=== PATIENT | female | born 1975 | race Caucasian/White ===

== ENCOUNTER → 2022-11-30 12:24 | Outpatient (CLI) | payer OTHER, MEDICAID, SELFPAY ==
--- NOTE | 2022-11-30 12:28 | DI.CT.S_ITS ---
PROCEDURE: CT LUMBAR SPINE WO CON INDICATIONS: Spinal stenosis, lumbar region TECHNIQUE: Noncontrast 3 mm thick sections acquired from the T12 level to the sacrum. Sagittal and coronal reformats were constructed. For radiation dose reduction, the following was used: automated exposure control. COMPARISON: [facility], MR, MR LUMBAR SPINE WITH/WITHOUT CONTRAST, 09/25/2022, 12:46. FINDINGS: Image quality: Excellent. Bones: Postsurgical changes are again seen from laminectomies and posterior fixation at L3 through S1 with bilateral pedicle screws and interbody rods as well as disc spacers. The left S1 pedicle screw is noted to be fractured proximally. Metallic hardware is otherwise intact with unchanged alignment. Osseous alignment is unchanged. No acute vertebral body compression fractures. No suspicious lytic or blastic bony lesions. No pars defects. T12-L1: No significant spinal canal stenosis or neural foraminal narrowing. L1-L2: Circumferential disc bulging is seen with bilateral facet hypertrophy. Findings result in mild narrowing of the spinal canal as well as mild right neural foraminal narrowing, which does not appear significantly changed when compared to the MRI from 09/25/2022. L2-L3: Loss of disc space height with circumferential disc bulging and degenerative endplate changes as well as bilateral facet hypertrophy and buckling of the ligamentum flavum. Findings result in severe narrowing of the spinal canal as well as severe right and moderate left neural foraminal narrowing. L3-L4: Postsurgical changes from prior laminectomy with decompression of the spinal canal. Moderate right and severe left neural foraminal narrowing. L4-L5: Postsurgical changes from laminectomy with decompression of the spinal canal. Moderate right neural foraminal narrowing without significant left neural foraminal narrowing. L5-S1: Postsurgical changes from laminectomy with decompression of the spinal canal. Moderate left neural foraminal narrowing is seen without significant right neural foraminal narrowing. Soft tissues: No retroperitoneal masses or hematomas. Visualized aorta is normal in caliber. IMPRESSION: 1. Postsurgical changes again seen at L3 through S1. The left S1 pedicle screw is noted to be fractured. 2. Multilevel degenerative disc disease and facet hypertrophy as described in detail in the body of the report. Findings are most notable at the L2-3 level with there is severe narrowing of the central spinal canal. Findings do not appear significantly changed when compared to the MRI from 09/25/2022. Approved by: Saman Coy M.D. on 11/30/2022 at 21:25
== END ==
PROVIDERS: Family Provider Nurse Practitioner; PCP Family Medicine; Referring Provider Orthopaedic Surgery Orthopaedic Surgery of the Spine; Visit Provider Orthopaedic Surgery Orthopaedic Surgery of the Spine
DX: M48.062 Spinal stenosis, lumbar region with neurogenic claudication (principal); T84.216A Breakdown (mechanical) of internal fixation device of vertebrae, initial encounter; M51.36 Other intervertebral disc degeneration, lumbar region; M48.061 Spinal stenosis, lumbar region without neurogenic claudication; M47.816 Spondylosis without myelopathy or radiculopathy, lumbar region
CPT/HCPCS: 72131

== ENCOUNTER → 2022-12-15 11:01 | Outpatient (CLI) | payer OTHER, MEDICAID, SELFPAY ==
[2022-12-15 12:34] LABS: BUN Creatinine Ratio 11.6 (6-22); Blood Urea Nitrogen 22 mg/dL (7-17); Calcium 9.1 mg/dL (8.4-10.2); Carbon Dioxide 26 mmol/L (22-32); Chloride 100 mmol/L (98-107); Estimated Glomerular Filt Rate 32 mL/min (>60); Glucose 108 mg/dL (70-100); HEMOLYSIS < 15 (0-50); Potassium 5.2 mmol/L (3.4-5.1); Sodium 134 mmol/L (137-145)
[2022-12-16 09:42] LABS: Parathyroid Hormone Int 179 pg/mL (15-65)
== END ==
PROVIDERS: Family Provider Nurse Practitioner; PCP Family Medicine; Referring Provider Orthopaedic Surgery Orthopaedic Surgery of the Spine; Visit Provider Orthopaedic Surgery Orthopaedic Surgery of the Spine
DX: Z01.818 Encounter for other preprocedural examination (principal); Z01.812 Encounter for preprocedural laboratory examination; R79.89 Other specified abnormal findings of blood chemistry
CPT/HCPCS: 36415; 80048; 83970; 93005; 93010

== ENCOUNTER 2023-01-08 06:11 | Inpatient (IN) | payer OTHER, MEDICAID, SELFPAY ==
[2023-01-01 12:46] VITALS: BMI 48.4
[2023-01-08] VITALS (19 sets, daily range): BP systolic 126–173; BP diastolic 46–96; PULSE 65–83; RESP 13–20; TEMP 36.1–36.9; O2SAT 91–98; BMI 48.2
[2023-01-08] MEDS: LACTATED RINGERS 1,000 ML 42 ML IV (07:14)
--- NOTE | 2023-01-08 07:23 | SUR.OPER ---
Prone on spine table, head in foam head support, padded chest and pelvic supports, gel pad at knees, lower legs supported by pillows; nipples, genitalia and toes free of pressure, arms secured on foam padded arm boards at <90 degrees abduction. Tape over blanket at thigh secured to table.
--- NOTE | 2023-01-08 07:38 | PM.PREOP ---
Pre-operative Note Interval Note History & Physical reviewed/Exam performed by Physician: Yes Changes to H&P: No
[2023-01-08] MEDS: CEFAZOLIN 2 GM/100 ML PREMIX 100 ML IV (08:10)
[2023-01-08] MEDS: BUPIVACAINE 0.25% (PF) 60 ML, EPINEPHrine 0.15 MG INJ (10:51)
[2023-01-08] MEDS: BUPIVACAINE LIPOSOME 266 MG/20 ML VIAL INJ (10:51)
--- NOTE | 2023-01-08 11:24 | P.OP_ITS ---
Operative Date/Time/Diagnoses Date of procedure: 01/08/23 Time of procedure: 11:24 Pre-op diagnosis: 1. L2-3 spinal stenosis with neurogenic claudication 2. History of L3-S1 PSF with instrumentation 3. left S1 pedicle screw breakage Post-op diagnosis: same Procedure & Clinicians Procedure: 1. L2-3 posterolateral and posterior interbody fusion 2. L2-3 posterior interbody cage placement 3. L3-S1 posterior non-segmental instrumentation removal 4. L3-4, L4-5, L5-S1 revision laminectomy with exploration of fusion 5. L2-3, L3-4, L4-5, L5-S1 posterior segmental instrumentation with pedicle screw placement 6. L5-S1 posterolatearl fusion 7. [place] of bone marrow from iliac crest through a separate incision 8. Utilization of microsurgical technique and operating microscope 9. Utilization of robotic assisted navigation Same procedure as scheduled: Yes Indications: Patient has been having chronic back pain and worsening lumbar radiculopathy and symptoms of neurogenic claudication. Patient had previous lumbar fusion surgery several years ago with worsening symptom of radiculopathy and neurogenic claudication over the last 6 months. Recent MRI shows a large extruded disc at L2-3 level causing severe central stenosis and lateral recess stenosis. Patient's recent CT scan for surgical planning also shows a broken left S1 screw assembly. Patient failed multiple conservative management with worsening pain weakness and numbness in her lower extremity. Patient has been having difficulty performing activity of daily living. After discussing risks benefits of treatment options, patient elected proceed with surgery. Surgeon: Micah Peace Certified Adapted Physical Educator: Della Trejo Click Yes if Unassisted: No Anesthesia Type: General Operative Notes Closure Type: primary Specimen(s): none sent Prosthetic devices, grafts, tissues, transplants, or devices: Globus CREO MIS screws, Globus Rise cage, Globus Addition system Applied: catheter Estimated Blood Loss (mL): 100 Blood products transfused: none Procedure in detail: Patient was seen in the preoperative area. Risks and benefits of the surgery was discussed with the patient. Informed consent was obtained from the patient and placed in the chart. Surgical site was marked. Patient was taken to the operative room. General anesthesia was administered. Prophylactic antibiotic was given to the patient less than 30 min before the incision was made. Patient was placed into a prone position on the Domenic table. Patient's back was then prepped and draped in the sterile fashion. Time-out was performed at this time. After patient was prepped and draped, patient's PSIS was palpated and marked bilaterally. Small 1 cm incision was made over the PSIS for placement of the reference probes. Two trocar was placed into the PSIS 1 on each side. The reference probe was attached to the trocar of the reference apparatus. At this time the C-arm imaging was used to confirm AP and lateral of L2, L3, L4, L5, and S1 vertebrae and merged the C-arm imaging using the Epoch robotic navigation system with the CT of the lumbar spine. After successful merging was completed and confirmed, skin marker was used to kashif out the skin incision using the Epoch robotic arm. Bilateral incision was made at this time. Using patient's previous scar incision was made over the L2, L3 L4, L5-S1 interval on the left side. Fascia was incised in line with skin incision. Patient's previously placed hardware over the L3-4, L4-5, L5-S1 level was identified by dissecting down to the level the hardware using a Bovie and a Coelho. The locking caps which was removed using globus screwdriver. The locking grisel was then removed from the tulips of the pedicle screws using a Genevieve. The pedicle screws were then removed using the screwdriver. The left S1 screw was found to have a disarticulated to look from the shaft of the screw. The grisel and the Tulip was no longer engage the shaft. After removing the locking cap the grisel and all the screws including the S1 screw was able to be removed from the pedicles of left L3-L4 L5 and S1 vertebrae. Pre templated trajectory was used and guided using the Epoch robotic navigation system for bilateral L2, L3, L4, L5, S1 pedicle screws placement. This was done by using the robotic arm to guide the high-speed bur to make a cortical entry point. Next a drill was placed also using the robotic arm and guided using the navigation system drilling partially through bilateral L2, L3, L4, L5, S1 pedicles. Next L2, L3, L4, L5, S1 pedicle screws it was pre templated and measured was placed onto the power laborer driver and inserted into the pedicles on the left. After all 5 screws were placed C-arm imaging was taken of both AP and lateral to confirm the placement. Excellent placement of the screws were confirmed and a matched precisely with the pre planned screw placement using the navigation system. Second incision was made on the right side over the L2-4 interval. The hardware was exposed at L3 and L4 level which was found to be intact without any issues. MARs retractor was inserted using [employer] guidence. Globus MARS retractors was placed inside the incision and docked onto the L3, L4, L5 lamina. Using microsurgical technique and operating microscope, a L2 laminectomy and L2-3 facetectomy was performed using a Kerrison rongeur. Patient was found have severe lateral recess and neural foramen stenosis which was fully decompressed after the laminectomy facetectomy. The laminectomy and facetectomy was performed in order to decompress patient's cauda equina as well as the nerve roots exiting at the L2-3 level. More than 75% of the facets were removed during the process of decompression rendering L2-3 level grossly unstable and required a fusion procedure at the same time. The disc space at L2-3 was identified, and a total diskectomy was performed at L2-3 level. The endplates were decorticated using a rasp and shaver. The total diskectomy and decortication was performed at L2-3 level in order to to accomplish a L2-3 fusion. The local bone from the laminectomy and facetectomy was saved for local bone grafting. After the total diskectomy and decortication was completed, DBM bone graft material was combined with local bone that was harvested earlier. At this time, a separate skin is incision was made over the iliac crest. A Jamshidi needle was inserted into the iliac crest through a separate skin incision. 5 cc of bone marrow aspiration was obtained through the separate skin incision using a Jamshidi needle from the iliac crest. The bone marrow aspiration was combined with local bone and the DBM bone grafting material. The bone grafting material was placed into the L2-3 interbody space along with a expandable cage. The cage was expanded to its maximum height using the torque limiting screwdriver. The disc preparation as well as the cage insertion were also performed under navigation guidance. After the cage was placed, AP and lateral C-arm imaging was taken to confirm placement of the cage and excellent position was confirmed. The fusion mass on the right side of L3-4, L4-5, L5-S1 was exposed by performing a right-sided hemilaminectomy at L3-4, L4-5 L5-S1 level. The hemilaminectomy was performed using the Kerrison rongeur to undercut the lamina as well removing additional epidural scar tissue for purpose of decompressing the epidural space. The fusion mass was explored and was found have visible motion indicating pseudoarthrosis at L5-S1 level. L3-4, L4-5 level was found to be solidly fused. L5-S1 was found to have motion indicating pseudoarthrosis. Globus MARS retractor was inserted and docked onto the L2-3 L5-S1 posterolateral gutter. Using the power drill, posterior-lateral decortication was performed at L2-3, L5-S1 level until bleeding cortical bone was identified. The remaining bone grafting material was placed into the L2-3, L5-S1 posterior lateral gutter he order to accomplish posterolateral fusion at the L2-3, L5-S1 level. At this time the tulips were attached to the L2, L3 L4-L5 and S1 pedicle screw shanks on the left. After measuring the length of the rods, they were inserted into the tulips of the pedicle screws and locked in place using locking caps and torque limiting screwdriver bilaterally. Total 5 caps and 1 titanium rods was used in order to complete the posterior instrumentation construct on the left. The globus addition system was used to attach a extension posterior instrumentation from the grisel between the L3 and L4 pedicle screw on the right side. Off the addition system was attached was locked in place using the torque limiting screwdriver. The reducing tower the was attached to the L2 pedicle shank the right side. Second reducing tower was attached to the addition system between the L3 and L4 pedicle screw on the right side. A grisel was measured and inserted between the L2 Tulip and the addition tulips. The grisel was locked in place using locking caps and torque limiting screwdriver. After all the hardware was placed, and confirmed with AP and lateral C-arm imaging, the wound was then irrigated with sterile normal saline and packed with Ray-Adrian gauze for 3 min to accomplish hemostasis. After the gauze was removed the deep fascia was closed with #1 Vicryl suture. The subcutaneous layer was closed with 2-0 Vicryl. The skin was closed with skin bernice. Patient tolerated the procedure well. There were no complications. Neuro monitoring system was used to monitor patient's neurologic status throughout entire procedure. There was no disturbance of the neural monitoring signals throughout the case. The Operation could not have been safely performed without compromising the technical result or length of the procedure, without the assistance of a skilled surgical device sales representative. The surgical device sales representative was medically necessary for proper positioning, retraction and manipulation of instruments, proper exposure, surgical preparation, and manipulation of tissue. Complications: none Post-operative Condition: stable Disposition: PACU Plan for aftercare: admit to inpatient hospital
--- NOTE | 2023-01-08 11:33 | DI.RAD.S_ITS ---
PROCEDURE: XR LUMBAR SPINE 2-3V INDICATIONS: L2-3 TLIF ROBOT TECHNIQUE: 4 views of the lumbar spine were acquired. COMPARISON: [facility], MR, MR LUMBAR SPINE WITH/WITHOUT CONTRAST, 09/25/2022, 12:46. [facility], CT, CT LUMBAR SPINE WO CON, 11/30/2022, 12:31. FINDINGS: 4 intraoperative fluoroscopy images demonstrate discectomy and posterior fusion at L2-L3. Note is made of prior discectomy and posterior fusion at L3-L4, L4-L5 and L5-S1. IMPRESSION: 1. Discectomy and spinal fusion as described Dictated by: Bea Adams M.D. on 01/08/2023 at 16:48 Approved by: Bea Adams M.D. on 01/08/2023 at 16:51
[2023-01-08] MEDS: HYDROMORPHONE 1 MG INJ IV ×2 (11:58→12:09)
--- NOTE | 2023-01-08 12:03 | SUR.PHASEI ---
Dr. Moon notified [facility]. Dose with sliding scale using Dr. Peace's orders, per Dr. Moon.
--- NOTE | 2023-01-08 12:05 | SUR.PHASEI ---
Report given Anika.
[2023-01-08] MEDS: OXYCODONE IR 5 MG TABLET PO (12:22)
[2023-01-08] MEDS: ACETAMINOPHEN 325 MG TABLET 650 MG PO ×2 (12:23→17:50)
[2023-01-08] MEDS: INSULIN REGULAR 100 UNIT/ML 3 ML VIAL SUBCUT (12:31)
--- NOTE | 2023-01-08 12:46 | SUR.PHASEI ---
Pt transferred to floor by Cem COATS. SBAR report to Ariane COATS
[2023-01-08] MEDS: LACTATED RINGERS 1,000 ML 125 ML IV ×2 (13:40→15:20)
[2023-01-08] MEDS: TIZANIDINE 4 MG TABLET 8 MG PO ×2 (13:44→20:39)
[2023-01-08] MEDS: cloNIDine 0.1 MG TABLET 0.3 MG PO ×2 (15:14→20:37)
[2023-01-08] MEDS: PREGABALIN 50 MG CAPSULE 100 MG PO ×2 (15:14→20:37)
[2023-01-08] MEDS: HYDRALAZINE 25 MG TABLET PO ×2 (15:15→20:48)
[2023-01-08] MEDS: OXYCODONE IR 10 MG TABLET PO ×2 (15:18→20:45)
[2023-01-08] MEDS: CEFAZOLIN VIAL 3 GM in SODIUM CHLORIDE 0.9% 100 ML IV (16:37)
[2023-01-08] MEDS: AMLODIPINE 5 MG TABLET PO (17:41)
[2023-01-08] MEDS: MONTELUKAST 10 MG TABLET PO (17:41)
[2023-01-08] MEDS: INSULIN LISPRO 100 UNIT/ML 3ML VIAL SUBCUT ×2 (17:42→20:35)
[2023-01-08] MEDS: INSULIN LISPRO 100 UNIT/ML 3ML VIAL 12 UNIT SUBCUT (17:42)
[2023-01-08] MEDS: HYDROMORPHONE 0.5 MG INJ IV (17:50)
[2023-01-08] MEDS: INSULIN GLARGINE 100 UNIT/ML 3ML PEN 44 UNIT SUBCUT (20:32)
[2023-01-08] MEDS: SENNOSIDES 8.6 MG TABLET 17.2 MG PO (20:36)
[2023-01-08] MEDS: DOCUSATE 100 MG CAPSULE PO (20:37)
[2023-01-08] MEDS: carvediloL 12.5 MG TABLET 37.5 MG PO (20:38)
[2023-01-08] MEDS: METFORMIN HCL 500 MG TABLET PO (20:38)
[2023-01-08] MEDS: PRAZOSIN 1 MG CAPSULE 2 MG PO (20:40)
[2023-01-09] VITALS (9 sets, daily range): BP systolic 112–141; BP diastolic 48–61; PULSE 65–80; RESP 16–17; TEMP 36.1–36.4; O2SAT 93–98
[2023-01-09] MEDS: CEFAZOLIN VIAL 3 GM in SODIUM CHLORIDE 0.9% 100 ML IV (00:01)
[2023-01-09] MEDS: OXYCODONE IR 10 MG TABLET PO ×6 (00:21→20:25)
[2023-01-09] MEDS: ACETAMINOPHEN 325 MG TABLET 650 MG PO (00:22)
[2023-01-09] MEDS: LACTATED RINGERS 1,000 ML 125 ML IV (01:14)
[2023-01-09] MEDS: TIZANIDINE 4 MG TABLET 8 MG PO ×3 (05:38→20:24)
[2023-01-09 05:52] LABS: Hemoglobin 9.3 g/dL (12.0-16.0)
--- NOTE | 2023-01-09 07:45 | PM.PNPO.1 ---
Subjective Subjective Date Patient Seen: 01/09/23 Time Patient Seen: 07:45 Interval history: Patient's pain has been moderate to severe. No fever or chills. No nausea or vomiting. Patient lives alone. Exam Vital Signs (past 8 hours): - 01/08/23 23:56 01/09/23 03:10 Temperature 98.3 F 96.9 F L Pulse Rate 76 65 Respiratory Rate 16 16 Blood Pressure 137/52 L 134/55 L Pulse Oximetry 94 94 Oxygen Flow Rate 0 0 Oxygen Delivery Method Nasal Cannula,CPAP Oxygen Flow Rate 0 Narrative Exam Narrative: Morbidly obese 47-year-old female resting in bed in no apparent distress. Motor functions intact bilateral lower extremities. Sensation grossly intact to light touch bilateral lower extremities. Const General: cooperative and comfortable Nutritional Appearance: obese (BMI 48.2) Orientation: alert Resp Effort & Inspection: normal respiratory effort and able to speak in complete sentences Objective Labs 01/09/23 05:25 Labs: Laboratory Results - last 24 hr 01/09/23 05:25 Hgb 9.3 L Hct 28.0 L PFSH Medical History Uses self-applied continuous glucose monitoring device Peptic ulcer Pneumonia Seasonal allergies Sleep apnea PCOS (polycystic ovarian syndrome) IBS (irritable bowel syndrome) Hyperkalemia Diverticulosis Convulsions (12/20/17) Chronic renal insufficiency, stage II (mild) Chronic pain disorder Asthma Anemia Allergic rhinitis ADHD Respiratory failure with hypoxia (05/05/20) HLD (hyperlipidemia) Peripheral neuropathy Diabetes Morbid obesity with body mass index (BMI) of 40.0 to 49.9 (Unknown) History of iron deficiency anemia Chronic post-traumatic stress disorder (PTSD) Nocturnal hypoxemia Obstructive sleep apnea of adult Primary insomnia Restless legs syndrome Bipolar II disorder Spinal stenosis, lumbar Chronic pain Anxiety Binge eating Hypersomnia Insomnia Depression Surgical History History of surgery Hx of fusion of cervical spine (08/2017) History of surgery (02/2019) History of esophagogastroduodenoscopy (EGD) Hx of discectomy (2007) Hx of discectomy (2005) History of lumbar fusion (2014) Hx of knee surgery (05/2008) Hx of knee surgery (07/1990) History of incisional hernia repair (1993) Hx of eye surgery (2016) Hx of colonoscopy Hx of cholecystectomy Hx of appendectomy (1997) History of tonsillectomy and adenoidectomy Hx of Achilles tendon repair (2012) History of gastric bypass (2007) Social History marital status: unmarried,single details: lives alone number of children: 0 household members: none lives independently: Yes caregiver/support person: Yes (16 hours weekly) housing: apartment pets and animals: Yes (has a little dog) Smoking Status: Never smoker alcohol intake: former substance use type: does not use during the past year weight has: increased > 10 lbs caffeine: No Assessment & Plan Post-op Postoperative Procedures: Procedures Operation Date: 01/08/23 07:45 Actual Procedure Side Surgeon p L2-3 TLIF, L2-S1 PSF with instrumentation-Robot Micah Peace MD Postoperative day: 1 Postoperative status: marginal pain control Postoperative status narrative: Stable status post L2-L3, L3-L4, L4-L5, L5-S1 posterior segmental instrumentation with pedicle screw placement Postoperative plan: routine post-op care Postoperative plan narrative: Mobilize with physical therapy, limit bending, twisting, lifting Multimodal pain management Disposition, [facility] [facility] Quality VTE Deep Vein Thrombosis/Pulmonary Embolism Present on Admission: No
[2023-01-09] MEDS: ATORVASTATIN 20 MG TABLET PO (09:13)
[2023-01-09] MEDS: calcitrioL 0.25 MCG CAPSULE PO (09:15)
[2023-01-09] MEDS: carvediloL 12.5 MG TABLET 37.5 MG PO ×2 (09:15→20:23)
[2023-01-09] MEDS: ZIPRASIDONE HCL 40 MG 40 EACH PO (09:15)
[2023-01-09] MEDS: lamoTRIgine 100 MG TABLET 400 MG PO (09:15)
[2023-01-09] MEDS: cloNIDine 0.1 MG TABLET 0.3 MG PO ×3 (09:19→20:24)
[2023-01-09] MEDS: DOCUSATE 100 MG CAPSULE PO ×2 (09:20→20:21)
[2023-01-09] MEDS: PREGABALIN 50 MG CAPSULE 100 MG PO ×3 (09:20→20:25)
[2023-01-09] MEDS: METFORMIN HCL 500 MG TABLET PO ×2 (09:20→20:26)
[2023-01-09] MEDS: MULTIVITAMIN 1 TABLET 1 TAB PO (09:20)
[2023-01-09] MEDS: IPRATROPIUM 0.5 MG/2.5 ML NEB INH (09:28)
[2023-01-09] MEDS: BUDESONIDE 0.5 MG/2 ML NEB INH (09:28)
[2023-01-09] MEDS: ALBUTEROL 2.5 MG/3 ML NEB (ADULT) INH (09:28)
[2023-01-09] MEDS: INSULIN LISPRO 100 UNIT/ML 3ML VIAL 12 UNIT SUBCUT ×3 (09:30→17:22)
[2023-01-09] MEDS: INSULIN LISPRO 100 UNIT/ML 3ML VIAL SUBCUT (09:30)
[2023-01-09] MEDS: BUMETANIDE 1 MG TABLET 2 MG PO (09:38)
[2023-01-09] MEDS: CHOLECALCIFEROL (VITAMIN D3) 5,000 UNIT TABLET 10000 UNIT PO (09:38)
[2023-01-09] MEDS: HYDRALAZINE 25 MG TABLET PO ×3 (09:39→20:23)
--- NOTE | 2023-01-09 14:16 | PT.IIE ---
Current Diagnoses Spinal stenosis, lumbar region with neurogenic claudication (01/08/23) Arthrodesis status (01/08/23) Surgery Performed Operation Date: 01/08/23 07:45 Actual Procedures p L2-3 TLIF, L2-S1 PSF with instrumentation-Robot - Micah Peace MD Surgical History (Last Reviewed 01/09/23 @ 07:46 by Peterson Berger PA-C) History of esophagogastroduodenoscopy (EGD) History of gastric bypass (2007) History of incisional hernia repair (1993) History of lumbar fusion (2014) History of surgery (02/2019) History of surgery History of tonsillectomy and adenoidectomy Hx of Achilles tendon repair (2012) Hx of appendectomy (1997) Hx of cholecystectomy Hx of colonoscopy Hx of discectomy (2005) Hx of discectomy (2007) Hx of eye surgery (2016) Hx of fusion of cervical spine (08/2017) Hx of knee surgery (07/1990) Hx of knee surgery (05/2008) Medical History (Last Reviewed 01/09/23 @ 07:46 by Peterson Berger PA-C) ADHD Allergic rhinitis Anemia Anxiety Asthma Binge eating Bipolar II disorder Chronic pain Chronic pain disorder Chronic post-traumatic stress disorder (PTSD) Chronic renal insufficiency, stage II (mild) Convulsions (12/20/17) Depression Diabetes Diverticulosis History of iron deficiency anemia HLD (hyperlipidemia) Hyperkalemia Hypersomnia IBS (irritable bowel syndrome) Insomnia Morbid obesity with body mass index (BMI) of 40.0 to 49.9 (Unknown) Nocturnal hypoxemia Obstructive sleep apnea of adult PCOS (polycystic ovarian syndrome) Peptic ulcer Peripheral neuropathy Pneumonia Primary insomnia Respiratory failure with hypoxia (05/05/20) Restless legs syndrome Seasonal allergies Sleep apnea Spinal stenosis, lumbar Uses self-applied continuous glucose monitoring device Physical Therapy Inpatient Evaluation/Re-Eval M1 PT/OT-IP Prior Functional Status Start: 01/08/23 14:54 Freq: NEEDED Status: Active Protocol: Document 01/09/23 15:31 AB (Rec: 01/09/23 16:04 AB [id number]) Medical Review Prior Functional Status Medical History Reviewed Yes Diet/Fluid Consistency Regular Communication Pt is able to express all needs. Mobility and Gait Pt reports she uses 4WW for ambulation at baseline due to LBP and BLE weakness. Activities of Daily Living and IADL's Pt reports she is IND with ADLs, but has a caregiver that comes 3x/week to perform IADLs . Social History Household Members none Living Arrangements Apartment/Condo Number of Floors (Floors) One Floor Number of Stairs To Enter/Railing? no CECILIA, but has ramp Home Environment High Toilet,Tub/Shower,Ramp Home Equipment Front Wheel Walker,Four Wheel Walker,Straight Cane,Bedside Commode,Shower Seat without Backrest,Hand Held Shower, Fire Loss Prevention Engineer Additional Social History Comment Pt lives alone and does not have anyone to assist her and can't afford additional help. M2 PT-IP Current Condition Start: 01/08/23 14:54 Freq: NEEDED Status: Active Protocol: Document 01/09/23 15:31 AB (Rec: 01/09/23 16:04 AB [id number]) Physical Therapy Current Condition Current Condition Evaluation Date 01/09/23 Treatment Diagnosis s/p lumbar TLIF L2-L3 Onset Date 01/08/23 M3 PT-IP Subjective Start: 01/08/23 14:54 Freq: NEEDED Status: Active Protocol: Document 01/09/23 15:31 AB (Rec: 01/09/23 16:04 AB [id number]) Subjective Physical Therapy Visit Type Type Initial Evaluation Visit Start Time 13:45 Visit Stop Time 14:16 Total Visit Minutes 31 Physical Therapy Visit Comments Patient Comments Pt presents semi supine in bed and is agreeable to PT eval this afternoon. Therapy Pain Assessment Pain When Pain Assessed At Rest Pain Present Pain Present Pain Reported Location Back to legs Intensity 6 Scale Used Numeric (0 - 10) Pain Behaviors Facial Grimacing,Wincing Pain Management Techniques Distraction,Re-positioning, Timing of Activity with Medications M4 PT-IP Mobility and Gait Start: 01/08/23 14:54 Freq: NEEDED Status: Active Protocol: Document 01/09/23 15:31 AB (Rec: 01/09/23 16:04 AB [id number]) PT-Bed Mobility Assessment Rolling Type of Rolling Log Rolling Level of Assist Standby Assistance Supine to Sit Supine to Sit Standby Assistance,Bedrails Sit to Supine Sit to Supine Standby Assistance Scooting Scooting to Edge of Bed Standby Assistance PT-Transfer Assessment Sit to and From Stand Sit to and from Stand Standby Assistance,Use of Upper Extremities Equipment Transfer Assistive Device Gait Belt,Front Wheeled Walker Transfers Transfer Destination Bed,Toilet Transfer Technique ambulated Transfer Ability Level of Assist Standby Assistance,Use of Upper Extremities Comments Mobility Comments The pt is able to perform log roll for bed mobility with SBA , but required use of bed rail to push up to sitting. Once sitting at EOB, she was able to scoot to edge with SBA, then performed STS with FWW and SBA. After standing, the pt ambulated 15ft in room with SBA/CGA and FWW, and had one instance of left knee buckling but this did not cause LOB. The pt ambulated to toilet to void, and was able to do so, but required maxA to perform pericare. The pt then ambulated 5ft back to bed and performed log roll to supine with SBA. The pt was assisted to comfortable position in bed with all needs met, call light within reach. RN was notified of findings. Gait Assessment Gait Gait Assistance Required: Standby Assistance Distance (Feet) 15 Assistive Devices Assistive Device Gait Belt,Front Wheeled Walker Gait Deviations General Gait Pattern Decreased Stride Length, Decreased Feet Clearance,Wide Based Gait Factors Limiting Gait Function Factors Limiting Gait Function Decreased Sensation,Decreased Strength,Limited Range of Motion,Pain Comments Gait Comments The pt also ambulates with RLE externally rotated, but states this is normal for her. Stair Climbing Assessment Comments Stair Climbing Comments Not performed due to weakness and fatigue. PT-Balance Assessment Sitting Balance and Reactions Static Sitting Balance Ability Normal Dynamic Sitting Balance Ability Normal Standing Balance and Reactions Static Standing Balance Ability Good Dynamic Standing Balance Ability Fair Device Used FWW M5 PT-IP Objective Assessments Start: 01/08/23 14:54 Freq: NEEDED Status: Active Protocol: Document 01/09/23 15:31 AB (Rec: 01/09/23 16:04 AB [id number]) Orientation Orientation/Cognition Level of Alertness Alert Orientation Name,Age,Birthday,Month,Date, Year,Day of Week,Place, Situation Language Function Ability No Deficits Noted Safety Awareness Understands Safety Issues Memory Description No Deficits Noted Gross Range of Motion Upper Extremity ROM Assessment Within Functional Limits Lower Extremity ROM Assessment Within Functional Limits Strength Upper Extremity Strength Assessment Within Functional Limits Lower Extremity Strength Assessment Within Functional Limits M6 PT-IP Treatment Start: 01/08/23 14:54 Freq: NEEDED Status: Active Protocol: Document 01/09/23 15:31 AB (Rec: 01/09/23 16:04 AB [id number]) Physical Therapy Treatment Education Education Provided Precautions,Weight Bearing Status,Post-Op Packet,Safety Brace Education Patient M7 PT-IP Assessment and Plan Start: 01/08/23 14:54 Freq: NEEDED Status: Active Protocol: Document 01/09/23 15:31 AB (Rec: 01/09/23 16:04 AB [id number]) PT Summary Assessment and Plan Potential Rehabilitation Potential Good Status of Condition at Evaluation Stable Summary Impairments Pain,ROM,Strength,Balance,Bed Mobility,Transfers,Gait, Activity Tolerance Assessment Summary Stefany Enriquez is a 47 year old female patient who is s/p lumbar TLIF L2-L3 performed on 01/08/23. The pt is able to perform bed mobility, STS, transfers and ambulation with FWW and SBA, requiring minimal cues to maintain precautions or to mobilize safely. Of note during ambulation, the pt has one instance of LLE buckling, but did not cause LOB. Based on her current level of function, PT recommends discharge of SNF vs home with assistance depending on her progress with therapy. The pt would benefit from skilled PT during her hospitalization to improve to her highest level of function. Goals Bed Mobility Goal Independent Transfer Goal Independent,Cane,Front Wheeled Walker,Four Wheeled Walker Gait Goal Independent,Cane,Front Wheel Walker,Four Wheel Walker Gait Distance 50 Other Goals Pt to perform transfer independently with LRAD to show improving level of function. Pt to ambulated 50ft independently with LRAD to show improving tolerance to activity in order to ambulate household distances. Days to Meet Goals 5 Frequency of Treatment Frequency Of Treatment Twice a Day Treatment Plan Physical Therapy Treatment Plan Bed Mobility Training,Transfer Training,Gait Training, Therapeutic Exercise,Balance Retraining,Post Op Education, Discharge Planning,Hot or Cold Pack,Neuromuscular Re-ed, Coordination Retraining,Manual Therapy Other Recommendations and Next Treatment Ambulate longer distance, use Focus 4WW as indicated Precautions Lumbar Precautions Log Roll,No Twisting,Limit Bending,Lifting Restriction of 10 lbs,Gait Belt above Incisional Area Weight Bearing Status Weight Bearing Status Weight Bear as Tolerated Recommendations To Nursing Amount of Assist Needed Standby Assistance,1 Person Assist Discharge Recommendations PT Discharge Recommendations Home Health,Home vs SNF Other Discharge Recommendations HHPT if discharge to home. Transportation Needs at Discharge Private Vehicle,Wheelchair/ Cabulance
--- NOTE | 2023-01-09 14:47 | OT.IPNOTE ---
Pt states in too much pain ,just wanting to rest and do OT tomorrow. Able to get pt's prior level of care. No charge.
--- NOTE | 2023-01-09 15:25 | CM.DANOTE ---
Reviewed EMR for pt's medical status and initial identified d/c needs. Met with pt at bedside to introduce self and role. Pt has already spoken with her insurance, notified her provider that she will need SNF rehab post-surgery. Identified [facility] for rehab choice. Clinicals faxed, will plan to fax updated therapies notes, [facility] notes tomorrow am. Pending acceptance. Payor: [employer] Medicare Adv, Medicaid Attending: Dr. Peace Pt is a 47 year-old F post-op day 1 following lumbar surgery. She ambulates with a walker at baseline, lives alone in her own apartment, has established caregivers 3-days per week. Previous to surgery she has had 3-falls in the last month due to worsening lumbar pain/numbness/tingling and increased lower extremity weakness that has made walking difficult. It's her goal to improve after this surgery so that she can get out of the house and start walking again, do more activities. DCP will monitor SNF rehab pending acceptance and transport plan for d/c to facility. Discharge Planning/Care Management Advanced directive, confirm from FAMILY Start: 01/08/23 13:20 Freq: Q24H Status: Active Protocol: Document 01/08/23 13:00 HCW (Rec: 01/08/23 13:59 HCW [id number]) Advance Directive, confirm on record Time 13:58 Person contacted patient Copy received No Document 01/09/23 13:20 CM (Rec: 01/09/23 15:01 CM [id number]) Advance Directive, confirm on record Time 13:58 Person contacted patient Copy received No Copy received No Advanced directive available on record No CM Discharge Assessment Start: 01/09/23 15:15 Freq: Status: Active Protocol: Document 01/09/23 15:16 DPL (Rec: 01/09/23 15:25 DPL [id number]) Discharge Planning Assessment Assigned Operator Receptionist SIMEON Levy Advance Directives? Yes Advance Directives on File No History Provided By Patient,Medical Record Expected Length of Stay 3 Has Patient been admitted in last 30 No days? Prior Living Arrangements Apartment/Condo Household Members none Type of transporation used prior to Relies on Others admit Comment Pt has hired cg's 3-days per week to assist. Independent with ADL's Yes: Mostly, has cg's to assist with home maintenance, shopping, transportation. Is patient alert and oriented? Yes Needs Assistance With Home Chores / Shopping Caregiver for Another No DME Already Rented / Owned FWW / Walker Comment PT will assess tomorrow, more info needed re: home DME needs . Patient/Family Preference Long-Term Facility Comment Faxed clinicals to [facility], they are reviewing. Barriers to Discharge No Discharge Plan Long-Term Facility Transportation Arrangement SNF Referrals Initiated Long-Term If patient plan is SNF: Has PASSR been Yes completed? Inpatient Status as of 01/08/23 Medicare Choice List Provided Yes Medicare choice list reviewed on patient electronic tablet with SNF/HH Preference [facility] Has Agency SNF been contacted Yes Whiteboard Updated in Patient Room with Yes name and ext. # of Operator Receptionist Review Status In Process Please Provide Date Initial DC 01/09/23 Assessment Was Performed Pre-Anesthesia Assessment Start: 01/01/23 12:46 Freq: Status: Active Protocol: Document 01/01/23 12:46 CAB (Rec: 01/01/23 13:51 CAB [id number]) Pre-Anesthesia Assessment Preferred Name Stefany Patient Information Reviewed Via Phone Assessment Assessment Completed With Patient Primary Care Provider Esther Molina Seen Specialist in Last 12 Months Yes Specialist Seen Machine Brush Maker,Orthopedist,Other Primary Language Indonesian Car Shifter Required No Height 162.56 cm Weight 127.913 kg Body Mass Index (BMI) 48.4 Hearing Ability Normal Visual Assist Glasses Dentition Type Full- Upper & Lower Barriers to Learning None Hx Anesthesia Reactions No Hx Family Anesthesia Reaction No Hx Malignant Hyperthermia No Hx Blood Transfusions No Anesthesia Review Requested No Merry Go Round Attendant Yes: Lives alone, no help @ DC alcohol intake former Alcohol Intake Frequency Other: Stopped after gastric bypass Smoking Status Never smoker Substance Use Type does not use Pain Present Pain Reported Musculoskeletal Symptoms Abnormal Gait,Back Pain, Difficulty Walking,Radiating Pain into Limb History of Falling (Recent or History of Yes ) Patient is completely paralyzed or No completely immobile Prosthesis or Orthotic Device Front Wheel Walker Mental Status Oriented to own ability Is patient on oxygen? No Does patient have SOOD/SOB Yes: Chronic sob/SOOD, chronic cough allergy related Hx Sleep Apnea Yes CPAP/BIPAP use prescribed and used routinely Will Bring CPAP/BIPAP DOS Yes Currently Taking a Beta Alonso Yes: Carvedilol Can You Climb a Flight of Stairs Without No SOB Hx Chest Pain No Hx SOB Yes: Chronic sob/SOOD, chronic cough allergy related Hx Syncope or Dizziness No Anti-Coagulant Therapy No Has a Machine Brush Maker Yes: Last visit 04/28/[address] Garner @ [facility] Cardiac Testing No Hx Pacemaker/ICD No Pacemaker Rep Required? 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 Yes Received all doses? Yes Marital Status Single Lives With none Current Living Arrangements Apartment/Condo Number of Floors (Floors) One Floor Number of Stairs To Enter/Railing? Ramp Support System None Comment Lives alone, no assist w/care @ [place], [facility] surgeon/PA aware Does the Patient Have Assistance After No Surgery Comment Pt advised 2 day length of stay per surgeon-pt has no help at home Feels Safe in Current Environment Yes Been Physically Hurt or Threatened By a No Person in Current Environment Do you have thoughts of harming yourself None or others? Are you currently considering suicide? No Do you have a plan to hurt yourself or No Plan others? Do You Have Any Spiritual Beliefs That No May Affect Your HC Choices? Do You Have Any Cultural Practices That No May Affect Your HC Choices? Comment Quaker Who Can We Speak to About Patient's Care Family, friends Identifying Code for Release of Patient Declines to issue Information Health Care Proxy/Next of Kin Tiffany Toro (sister) Health Care Proxy Emergency Contact Name Mary Enriquez (Mother) Emergency Contact Advance Directives? No Power of Adult Health Clinical Nurse Specialist No PAC Instructions Bring CPAP/BIPAP,Diabetes instructions,Durable medical equipment,Medications to take/ avoid,Nasal antibiotic,No ETOH /petroleum product on skin DOS ,NPO,Pre-surgical wash,Sensory aids,Sturdy shoes/comfortable clothes,Do not bring valuables and remove jewelry
[2023-01-09] MEDS: VENLAFAXINE HCL 100 MG TABLET PO ×2 (16:13→20:24)
[2023-01-09] MEDS: MONTELUKAST 10 MG TABLET PO (17:21)
[2023-01-09] MEDS: AMLODIPINE 5 MG TABLET PO (17:21)
[2023-01-09] MEDS: INSULIN GLARGINE 100 UNIT/ML 3ML PEN 44 UNIT SUBCUT (20:20)
[2023-01-09] MEDS: PRAZOSIN 1 MG CAPSULE 2 MG PO (20:21)
[2023-01-09] MEDS: SENNOSIDES 8.6 MG TABLET 17.2 MG PO (20:25)
[2023-01-10] VITALS (11 sets, daily range): BP systolic 96–130; BP diastolic 39–79; PULSE 72–85; RESP 16–20; TEMP 36.4–36.7; O2SAT 93–97
[2023-01-10] MEDS: OXYCODONE IR 10 MG TABLET PO ×4 (02:19→20:19)
[2023-01-10] MEDS: ACETAMINOPHEN 325 MG TABLET 650 MG PO ×3 (02:19→13:08)
[2023-01-10] MEDS: hydrOXYzine pamoate 25 MG CAPSULE PO ×2 (03:14→20:17)
[2023-01-10] MEDS: TIZANIDINE 4 MG TABLET 8 MG PO ×2 (05:42→20:19)
[2023-01-10] MEDS: INSULIN LISPRO 100 UNIT/ML 3ML VIAL SUBCUT (08:00)
[2023-01-10] MEDS: INSULIN LISPRO 100 UNIT/ML 3ML VIAL 12 UNIT SUBCUT (08:00)
[2023-01-10] MEDS: PREGABALIN 50 MG CAPSULE 100 MG PO ×3 (08:11→20:15)
[2023-01-10] MEDS: MULTIVITAMIN 1 TABLET 1 TAB PO (08:11)
[2023-01-10] MEDS: lamoTRIgine 100 MG TABLET 400 MG PO (08:11)
[2023-01-10] MEDS: DOCUSATE 100 MG CAPSULE PO ×2 (08:11→20:16)
[2023-01-10] MEDS: ATORVASTATIN 20 MG TABLET PO (08:11)
[2023-01-10] MEDS: METFORMIN HCL 500 MG TABLET PO ×2 (08:11→20:18)
--- NOTE | 2023-01-10 08:11 | P.DS_ITS ---
History of Present Illness History of Present Illness Date Patient Seen: 01/10/23 Time Patient Seen: 08:11 Chief complaint: INPT Narrative: Operative Date/Time/Diagnoses Date of procedure: 01/08/23 Time of procedure: 11:24 Pre-op diagnosis: 1. L2-3 spinal stenosis with neurogenic claudication 2. History of L3-S1 PSF with instrumentation 3. left S1 pedicle screw breakage Post-op diagnosis: same Procedure & Clinicians Procedure: 1. L2-3 posterolateral and posterior interbody fusion 2. L2-3 posterior interbody cage placement 3. L3-S1 posterior non-segmental instrumentation removal 4. L3-4, L4-5, L5-S1 revision laminectomy with exploration of fusion 5. L2-3, L3-4, L4-5, L5-S1 posterior segmental instrumentation with pedicle screw placement 6. L5-S1 posterolatearl fusion 7. [place] of bone marrow from iliac crest through a separate incision 8. Utilization of microsurgical technique and operating microscope 9. Utilization of robotic assisted navigation Same procedure as scheduled: Yes Indications: Patient has been having chronic back pain and worsening lumbar radiculopathy and symptoms of neurogenic claudication. Patient had previous lumbar fusion surgery several years ago with worsening symptom of radiculopathy and neurogenic claudication over the last 6 months. Recent MRI shows a large extruded disc at L2-3 level causing severe central stenosis and lateral recess stenosis. Patient's recent CT scan for surgical planning also shows a broken left S1 screw assembly. Patient failed multiple conservative management with worsening pain weakness and numbness in her lower extremity. Patient has been having difficulty performing activity of daily living. After discussing risks benefits of treatment options, patient elected proceed with surgery. Surgeon: Micah Peace Sales Program Manager: Della Trejo Click Yes if Unassisted: No Anesthesia Type: General Operative Notes Closure Type: primary Specimen(s): none sent Prosthetic devices, grafts, tissues, transplants, or devices: Globus CREO MIS screws, Globus Rise cage, Globus Addition system Applied: catheter Estimated Blood Loss (mL): 100 Blood products transfused: none Discharge Providers Provider Date of admission: 01/08/23 06:11 Discharge Date: 01/10/23 Primary care physician: Esther Molina MD Consults: 01/04/23 08:21 Consult to Electrical Maintenance Mechanic Routine Comment: Lives alone-no help @[place], [facility] surgeon/[place] aware 01/08/23 12:47 Consult to Occupational Therapy Evaluate & Treat Comment: Physician Instructions: Evaluate and treat Consult to Physical Therapy Evaluate & Treat Comment: Physician Instructions: Evaluate and Treat Discharge provider: Della Trejo PA-C Summary Hospital Course Discharge Diagnosis: L2-3 spinal stenosis with neurogenic claudication; History of L3-S1 PSF with instrumentation; left S1 pedicle screw breakage. S/p L2-3 lumbar fusion with hardware revision from L2-S1 on left. Morbid obesity. Hospital Course: Ms Enriquez's hospital course was unremarkable. Because of her obesity and the fact that she lives alone, she required SNF rehab prior to discharge home. She has a caregiver at baseline, but this person is not available all day, every day. On the morning of POD# 2, she was eating and voiding without difficulty and her pain was well-controlled with oral medication. SNF discharge was pending acceptance. Exam Vital Signs (past 8 hours): Oxygen Delivery Method CPAP Oxygen Flow Rate 0 Narrative Exam Narrative: 5/5 strength in hip flexors, quadriceps, hamstrings, DF, PF, EHL bilaterally. Sensation to light touch intact throughout BLE. Calves soft, compressible, nontender. Dressing placed intraoperatively with some old, bloody drainage; otherwise intact. Objective Labs 01/09/23 05:25 [facility] Medical History Uses self-applied continuous glucose monitoring device Peptic ulcer Pneumonia Seasonal allergies Sleep apnea PCOS (polycystic ovarian syndrome) IBS (irritable bowel syndrome) Hyperkalemia Diverticulosis Convulsions (12/20/17) Chronic renal insufficiency, stage II (mild) Chronic pain disorder Asthma Anemia Allergic rhinitis ADHD Respiratory failure with hypoxia (05/05/20) HLD (hyperlipidemia) Peripheral neuropathy Diabetes Morbid obesity with body mass index (BMI) of 40.0 to 49.9 (Unknown) History of iron deficiency anemia Chronic post-traumatic stress disorder (PTSD) Nocturnal hypoxemia Obstructive sleep apnea of adult Primary insomnia Restless legs syndrome Bipolar II disorder Spinal stenosis, lumbar Chronic pain Anxiety Binge eating Hypersomnia Insomnia Depression Surgical History History of surgery Hx of fusion of cervical spine (08/2017) History of surgery (02/2019) History of esophagogastroduodenoscopy (EGD) Hx of discectomy (2007) Hx of discectomy (2005) History of lumbar fusion (2014) Hx of knee surgery (05/2008) Hx of knee surgery (07/1990) History of incisional hernia repair (1993) Hx of eye surgery (2016) Hx of colonoscopy Hx of cholecystectomy Hx of appendectomy (1997) History of tonsillectomy and adenoidectomy Hx of Achilles tendon repair (2012) History of gastric bypass (2007) Social History marital status: unmarried,single details: lives alone number of children: 0 household members: none lives independently: Yes caregiver/support person: Yes (16 hours weekly) housing: apartment pets and animals: Yes (has a little dog) Smoking Status: Never smoker alcohol intake: former substance use type: does not use during the past year weight has: increased > 10 lbs caffeine: No Discharge Assessment & Plan Assessment and Plan Assessment: L2-3 spinal stenosis with neurogenic claudication; History of L3-S1 PSF with instrumentation; left S1 pedicle screw breakage. S/p L2-3 lumbar fusion with hardware revision from L2-S1 on left. Morbid obesity. Acute on chronic anemia d/t expected surgical blood loss. Plan of Treatment: Discharge to SNF once facility accepts. F/u in office in 2 weeks as scheduled. Discharge Plan Discharge Plan Patient Disposition: SNF Discharge orders & Medications Prescriptions: New oxycodone 5 mg tablet 5 mg PO Q4H PRN (Reason: pain (scale score 7-10)) Qty: 60 0RF docusate sodium 100 mg Capsule 100 mg PO BID PRN (Reason: constipation) Qty: 60 1RF acetaminophen 325 mg Tablet 650 mg PO Q6H PRN (Reason: Fever/Mild Pain (1-3)) Qty: 240 0RF hydroxyzine pamoate 25 mg Capsule 25 mg PO Q4HR PRN (Reason: muscle spasm) Qty: 90 0RF Continued montelukast [Singulair] 10 mg tablet 10 mg PO QPM pregabalin 100 mg capsule 100 mg PO TID Patient Comments: ordered by PCP metformin 500 mg tablet 500 mg PO BID amlodipine 5 mg tablet 5 mg PO QPM carvedilol 25 mg tablet 37.5 mg PO BID mometasone 50 mcg/actuation spray,non-aerosol 2 spray intranasal QPM bumetanide 2 mg tablet 2 mg PO DAILY tizanidine 4 mg tablet 8 mg PO Q8H Spiriva Respimat 2.5 mcg/actuation mist 2 puff inhalation DAILY multivitamin Tablet 1 tab PO DAILY calcitriol 0.25 mcg capsule 0.25 mcg PO DAILY cholecalciferol (vitamin D3) 250 mcg (10,000 unit) capsule 250 mcg PO DAILY epinephrine 0.3 mg/0.3 mL auto-injector 0.3 mg IM ONCE PRN (Reason: anaphylaxis) ziprasidone HCl 80 mg capsule 160 mg PO HS Qty: 180 3RF lamotrigine [Lamictal] 200 mg tablet 400 mg PO DAILY Qty: 180 3RF Lantus U-100 Insulin 100 unit/mL solution 44 unit SUBCUT BEDTIME albuterol sulfate 2.5 mg /3 mL (0.083 %) solution for nebulization 2.5 mg INHALATION DAILY PRN (Reason: Shortness Of Breath) atorvastatin 20 mg tablet 20 mg PO DAILY ProAir HFA 90 mcg/actuation HFA aerosol inhaler 1 puff INHALATION Q6H PRN (Reason: Shortness Of Breath) Advair HFA 115-21 mcg/actuation HFA aerosol inhaler 2 puff INHALATION BID clonidine HCl 0.3 mg Tablet 0.3 mg PO TID insulin aspart U-100 [Novolog FlexPen U-100 Insulin] 100 unit/mL (3 mL) Insulin Pen 12 unit SUBCUT TID Ozempic 2 mg/dose (8 mg/3 mL) Pen Injector 2 mg SUBCUT QWEEK venlafaxine 100 mg tablet 100 mg PO TID ziprasidone HCl 40 mg capsule 40 mg PO QAM Patient Comments: 40mg qam, 160 bedtime Rx Instructions: give with food (meal/snack) hydralazine 25 mg Tablet 25 mg PO TID flunisolide 25 mcg (0.025 %) spray,non-aerosol 2 spray intranasal DAILY prazosin 2 mg capsule 2 mg PO BEDTIME Follow up/Referrals: Micah Peace MD [Physician] - As previously scheduled (Follow up w/ Carl Jara PA-C, on 01/23/2023 @ 4:30 pm at [facility] office in [place].) Esther Molina MD [Primary Care Provider] - Diet/Activity/Treatments Diet: Diet as Tolerated Activity: No deep bending or twisting at the waist. No lifting more than 10 pounds. Cold/Heat Therapy: Heating pad to low back as needed for pain. Skin/Wound/Dressing Care Report to your healthcare provider any signs of infection, such as:: chills, fever, night sweats, unusual drainage and unusual redness Dressing: May shower. Keep dressing as dry as possible. If dressing becomes wet or dirty, may remove and replace with clean, dry gauze. No bathing or otherwise soaking incisions. Do not apply any creams, lotions, or ointments to incisions. Visit Report/Discharge Packet Instructions: DI for Prescription Opioid Use, DI for Transforaminal Lumbar Interbody Fusion Stand Alone Forms: Patient Portal/API, Surgery Discharge Discharge Data Primary Care Provider: Esther Molina VTE Deep Vein Thrombosis/Pulmonary Embolism Present on Admission: No
[2023-01-10] MEDS: ZIPRASIDONE HCL 40 MG 40 EACH PO (08:12)
[2023-01-10] MEDS: cloNIDine 0.1 MG TABLET 0.3 MG PO ×3 (08:12→20:15)
[2023-01-10] MEDS: calcitrioL 0.25 MCG CAPSULE PO (08:12)
[2023-01-10] MEDS: HYDRALAZINE 25 MG TABLET PO ×3 (08:12→20:18)
[2023-01-10] MEDS: BUMETANIDE 1 MG TABLET 2 MG PO (08:13)
[2023-01-10] MEDS: carvediloL 12.5 MG TABLET 37.5 MG PO ×2 (08:13→20:18)
[2023-01-10] MEDS: CHOLECALCIFEROL (VITAMIN D3) 5,000 UNIT TABLET 10000 UNIT PO (08:13)
[2023-01-10] MEDS: VENLAFAXINE HCL 100 MG TABLET PO ×3 (08:25→20:16)
--- NOTE | 2023-01-10 08:55 | OT.IP.EVAL ---
Current Diagnoses Spinal stenosis, lumbar region with neurogenic claudication (01/08/23) Arthrodesis status (01/08/23) Surgery Performed Operation Date: 01/08/23 07:45 Actual Procedures p L2-3 TLIF, L2-S1 PSF with instrumentation-Robot - Micah Peace MD Past Medical History (Last Reviewed 01/09/23 @ 07:46 by Peterson Berger PA-C) ADHD Allergic rhinitis Anemia Anxiety Asthma Binge eating Bipolar II disorder Chronic pain Chronic pain disorder Chronic post-traumatic stress disorder (PTSD) Chronic renal insufficiency, stage II (mild) Convulsions (12/20/17) Depression Diabetes Diverticulosis History of iron deficiency anemia HLD (hyperlipidemia) Hyperkalemia Hypersomnia IBS (irritable bowel syndrome) Insomnia Morbid obesity with body mass index (BMI) of 40.0 to 49.9 (Unknown) Nocturnal hypoxemia Obstructive sleep apnea of adult PCOS (polycystic ovarian syndrome) Peptic ulcer Peripheral neuropathy Pneumonia Primary insomnia Respiratory failure with hypoxia (05/05/20) Restless legs syndrome Seasonal allergies Sleep apnea Spinal stenosis, lumbar Uses self-applied continuous glucose monitoring device Surgical History (Last Reviewed 01/09/23 @ 07:46 by Peterson Berger PA-C) History of esophagogastroduodenoscopy (EGD) History of gastric bypass (2007) History of incisional hernia repair (1993) History of lumbar fusion (2014) History of surgery (02/2019) History of surgery History of tonsillectomy and adenoidectomy Hx of Achilles tendon repair (2012) Hx of appendectomy (1997) Hx of cholecystectomy Hx of colonoscopy Hx of discectomy (2005) Hx of discectomy (2007) Hx of eye surgery (2016) Hx of fusion of cervical spine (08/2017) Hx of knee surgery (07/1990) Hx of knee surgery (05/2008) Occupational Therapy Inpatient Evaluation/Re-Eval M1 PT/OT-IP Prior Functional Status Start: 01/10/23 08:59 Freq: NEEDED Status: Active Protocol: Document 01/10/23 08:37 [facility] (Rec: 01/10/23 09:16 [facility] [id number]) Medical Review Prior Functional Status Medical History Reviewed Yes Diet/Fluid Consistency Regular Communication Pt is able to express all needs. Mobility and Gait Pt reports she uses 4WW for ambulation at baseline due to LBP and BLE weakness. Activities of Daily Living and IADL's Pt reports she is IND with ADLs, but has a cargiver that comes 3x/week to perform IADLs . Social History Household Members none Living Arrangements Apartment/Condo Number of Floors (Floors) One Floor Number of Stairs To Enter/Railing? no CECILIA, but has ramp Home Environment High Toilet,Tub/Shower,Ramp Home Equipment Front Wheel Walker,Four Wheel Walker,Straight Cane,Bedside Commode,Shower Seat without Backrest,Hand Held Shower,Long Handled Shoe Horn,Hospice Case Manager, Sock Aid Additional Social History Comment Pt lives alone and does not have anyone to assist her and can't afford additional help. M2 OT-IP Current Condition Start: 01/10/23 08:59 Freq: Status: Active Protocol: Document 01/10/23 08:37 [facility] (Rec: 01/10/23 09:16 [facility] [id number]) Occupational Therapy Current Condition Current Condition Evaluation Date 01/10/23 Treatment Diagnosis S/P L2-3 TLIF, L2-S1 PSF Diagnosis Onset Date 01/08/23 Post Operative Precautions Lumbar Precautions Log Roll,No Twisting,Limit Bending,Lifting Restriction of 10 lbs,Gait Belt above Incisional Area M3 OT- IP Subjective and Pain Start: 01/10/23 08:59 Freq: Status: Active Protocol: Document 01/10/23 08:37 [facility] (Rec: 01/10/23 09:16 [facility] [id number]) OT- Subjective Occupational Therapy Visit Type Type Initial Evaluation Visit Start Time 08:37 Visit Stop Time 08:55 Total Visit Minutes 18 Occupational Therapy Visit Comments Patient Comments Pt agreed to get up to use the bathroom. Patient/Caregiver Goals TO go to skilled rehab. OT Pain Assessment Pain When Pain Assessed At Rest Pain Present Pain Present Pain Reported Location Back Intensity 5 Scale Used Numeric (0 - 10) M4 OT- IP ADL's Start: 01/10/23 08:59 Freq: Status: Active Protocol: Document 01/10/23 08:37 [facility] (Rec: 01/10/23 09:16 [facility] [id number]) OT [id number] General Evaluation Self-Feeding Ability Independent OT ADL-Grooming Comments OT Grooming Comments Pt having low BP, therefore assist pt to rinse out her dentures. OT ADL-Dressing General Eval Lower Body Dressing Ability Maximum Assistance Comments OT Dressing Comments For LB dressing needs, will benefit from practice of LB dressing equipment but too woozy now to try. OT ADL-Toileting Comments OT Toileting Comments Not able to perform. At this time pt will need assist for hygiene needs after a bowel movement. OT ADL-Bathing Comments OT Bathing Comments Not performed. M5 OT- IP IADL's Start: 01/10/23 08:59 Freq: Status: Active Protocol: Document 01/10/23 08:37 [facility] (Rec: 01/10/23 09:16 [facility] [id number]) OT-Instrumental Activities of Daily Living Deficits IADL Deficits Identified Deficits Home Safety Awareness Awareness of Need for Assistance at Home Good Awareness Home Safety Comments Pt very woozy and groogy and not able to think well at this time. Medication Management Medication Management Comments Pt would benefit from assist at this time. Money Management Money Management Comments Pt will benefit from assist. Meal Preparation Meal Preparation Comments Pt will benefit from assist. Food Service Specialist Food Service Specialist Caregiver Provides Assist M6 OT- IP Functional Cognition Start: 01/10/23 08:59 Freq: Status: Active Protocol: Document 01/10/23 08:37 [facility] (Rec: 01/10/23 09:16 [facility] [id number]) Cognitive Factors Limiting Selfcare Function Cognitive Ability Level of Alertness Drowsy Patient Orientation Name Attention Span Ability Capable of Focused Attention, Capable of Sustained Attention Ability to Follow Commands Able to Follow One Step Commands with Increased Time, Able to Follow One Step Commands with Repetition Cognitive Comments Cognitive Assessment Comments Pt very woozy and googy and having low BP. Per nurse, pt just received lots of medications. Pt only able to recall 2/3 back precautions at this time. OT- Vision and Hearing OT- Vision Assessment Visual Acuity Glasses All The Time Visual Attentiveness WFL Occular Pursuits WFL M7 OT- IP Mobility and Balance Start: 01/10/23 08:59 Freq: Status: Active Protocol: Document 01/10/23 08:37 [facility] (Rec: 01/10/23 09:16 [facility] [id number]) OT- Bed Mobility Assessment Sit to Supine Sit to Supine Assist Minimal Assistance OT-Transfer Assessment Sit to and From Stand Sit to and from Stand Minimal Assistance Transfers Transfer Ability Contact Guard Assistance Technique Transfer Destination Bed,Chair Transfer Technique Stand Step Pivot Devices Transfer Assistive Devices Gait Belt,Front Wheeled Walker Comments Mobility Comments ABBEY to stand and CGA with the FWW to get to the bed. ABBEY to assist to get her feet back into the bed. Pt gets up 5 times at night to use the bathroom and will benefit from getting more independent prior to going home. BP supine 99/44 sitting, standing 102/ 39 , and back in bed 96/39- pt feeling very woozy and googy and mumbled and slurred speech - nursing aware. OT- Balance Assessment Sitting Balance and Reactions Static Sitting Balance Ability Good Dynamic Sitting Balance Ability Good Standing Balance and Reactions Static Standing Balance Ability Good Dynamic Standing Balance Ability Fair M8 OT- IP Objective Assessments Start: 01/10/23 08:59 Freq: Status: Active Protocol: Document 01/10/23 08:37 [facility] (Rec: 01/10/23 09:16 [facility] [id number]) OT Gross Range of Motion Upper Extremity Range of Motion Assessment Within Functional Limits M9 OT- IP Assessment and Plan Start: 01/10/23 08:59 Freq: Status: Active Protocol: Document 01/10/23 08:37 [facility] (Rec: 01/10/23 09:16 [facility] [id number]) OT Summary Assessment and Plan Potential Rehabilitation Potential Good Analytic Complexity at Evaluation Low Summary OT Impairments Pain,Balance,Functional Mobility,Grooming,Dressing, Toileting,Bathing,Toilet Transfers,Shower Transfers Progress Towards Goals Slow Progress due to Pain,Slow Progress due to Medical Issues Assessment Summary Pt low complexity and main barriers are googy/woozy and having low BP, needing assist for bed mobility and for toileting, dressing, and bathing needs. Pt normally gets up 5 times at night to use the bathroom and will benefit form short skilled rehab to increase her safety and mobility needs and to practice use of LB dressing equipment for ADL needs. Goals Grooming Goal Independent Dressing Goal Independent,Long Handled Shoe Horn,Hospice Case Manager,Sock Aid Toileting Goal Independent Bathing Goal Minimal Assistance Toilet Transfer Goal Independent Shower Transfer Goal Contact Guard Assistance Days to Meet Goals 7 Frequency of Treatment Frequency Of Treatment Once a Day Treatment Plan OT Treatment Plan ADL Training,Functional Mobility,Patient/Family Education,Discharge Planning Other Treatment Recommendations and Next practice LB dressing Treatment Focus Discharge Recommendations OT Discharge Recommendations SNF Rehab Home Equipment Needs toilet paper aid Transportation Needs at Discharge Wheelchair/Cabulance
--- NOTE | 2023-01-10 10:31 | PT.IPTN ---
Current Diagnoses Spinal stenosis, lumbar region with neurogenic claudication (01/08/23) Arthrodesis status (01/08/23) Surgery Performed Operation Date: 01/08/23 07:45 Actual Procedures p L2-3 TLIF, L2-S1 PSF with instrumentation-Robot - Micah Peace MD Physical Therapy Treatment Note M2 PT-IP Current Condition Start: 01/08/23 14:54 Freq: NEEDED Status: Active Protocol: Document 01/09/23 15:31 AB (Rec: 01/09/23 16:04 AB [id number]) Physical Therapy Current Condition Current Condition Evaluation Date 01/09/23 Treatment Diagnosis s/p lumbar TLIF L2-L3 Onset Date 01/08/23 M3 PT-IP Subjective Start: 01/08/23 14:54 Freq: NEEDED Status: Active Protocol: Document 01/10/23 11:01 ZF (Rec: 01/10/23 11:33 ZF [id number]) Subjective Physical Therapy Visit Type Type Treatment Note Visit Start Time 10:31 Visit Stop Time 10:56 Total Visit Minutes 25 Number of DIRECTOR BANKING Visits 1 Physical Therapy Visit Comments Patient Comments Pt resting in bed when approached for therapy, reports that she'd like to use the restroom. Therapy Pain Assessment Pain Present Pain Present Pain Reported Location Back to legs Pain Management Techniques Apply Cold,Timing of Activity with Medications M4 PT-IP Mobility and Gait Start: 01/08/23 14:54 Freq: NEEDED Status: Active Protocol: Document 01/10/23 11:01 ZF (Rec: 01/10/23 11:33 ZF [id number]) PT-Bed Mobility Assessment Rolling Type of Rolling Log Rolling Level of Assist Standby Assistance Supine to Sit Supine to Sit Minimal Assistance Scooting Scooting to Edge of Bed Standby Assistance PT-Transfer Assessment Sit to and From Stand Sit to and from Stand Standby Assistance,Use of Upper Extremities Equipment Transfer Assistive Device Gait Belt,Front Wheeled Walker Transfers Transfer Destination Bed,Chair,Toilet Transfer Technique ambulated Transfer Ability Level of Assist Standby Assistance,Use of Upper Extremities Comments Mobility Comments Pt lying supine w/HOB raised, requests using toilet. Pt able to recall 2/3 spinal precautions. Pt log rolls w/ SBA, requires Michelet for pushing up from sidelying to sitting. BP measured in supine prior to mobility: 122/66mmHg. In sitting BP: 94/49mmHg. Pt reports dizziness in sitting. STS from EOB is SBA w/2ww. Pt requests amb to toilet. Requires SBA w/2ww. Pt requires MaxA for donning/ doffing brief, and for pericare. Transfer is SBA. Pt amb to recliner. Attempts 5xSTS to assess functional strength. Pt requires extended time for STS from low seat and requires use of UE. Completes x1 STS, unable to continue due to fatigue. Pt tolerates ~3 mins of standing. BP in standin/70mmHg. Pt agreeable to remaining up in chair, call light within reach. Ice pack provided to low back in sitting for reduced pain and improved healing. Gait Assessment Gait Gait Assistance Required: Standby Assistance Distance (Feet) 20 Assistive Devices Assistive Device Gait Belt,Front Wheeled Walker Gait Deviations General Gait Pattern Decreased Stride Length, Decreased Feet Clearance,Wide Based Gait Factors Limiting Gait Function Factors Limiting Gait Function Decreased Sensation,Decreased Strength,Limited Range of Motion,Pain PT-Balance Assessment Sitting Balance and Reactions Static Sitting Balance Ability Normal Dynamic Sitting Balance Ability Normal Standing Balance and Reactions Static Standing Balance Ability Good Dynamic Standing Balance Ability Fair Device Used FWW Functional Assessments Functional Tests 5 Times Sit to Stand Unable to complete due to fatigue. M5 PT-IP Objective Assessments Start: 01/08/23 14:54 Freq: NEEDED Status: Active Protocol: Document 01/09/23 15:31 AB (Rec: 01/09/23 16:04 AB [id number]) Orientation Orientation/Cognition Level of Alertness Alert Orientation Name,Age,Birthday,Month,Date, Year,Day of Week,Place, Situation Language Function Ability No Deficits Noted Safety Awareness Understands Safety Issues Memory Description No Deficits Noted Gross Range of Motion Upper Extremity ROM Assessment Within Functional Limits Lower Extremity ROM Assessment Within Functional Limits Strength Upper Extremity Strength Assessment Within Functional Limits Lower Extremity Strength Assessment Within Functional Limits M6 PT-IP Treatment Start: 01/08/23 14:54 Freq: NEEDED Status: Active Protocol: Document 01/10/23 11:01 ZF (Rec: 01/10/23 11:33 ZF [id number]) Physical Therapy Treatment Education Education Provided Precautions,Weight Bearing Status,Safety M7 PT-IP Assessment and Plan Start: 01/08/23 14:54 Freq: NEEDED Status: Active Protocol: Document 01/10/23 11:01 NOMAN (Rec: 01/10/23 11:33 [id number]) PT Summary Assessment and Plan Potential Rehabilitation Potential Good Summary Impairments Pain,ROM,Strength,Balance,Bed Mobility,Transfers,Gait, Activity Tolerance Progress Towards Goals Slow Progress due to Medical Issues,Slow Progress due to Activity Tolerance Assessment Summary Pt is SBA for transfers and amb. Requires Michelet for sidelying to Sitting EOB. Pt fatigues easily, reports dizziness throughout treatment , see vitals above. Pt requires MaxA for pericare and donning/doffing brief. Unable to complete 5xSTS demonstrating poor activity tolerance. Pt lives alone and will require some assistance with IADLs, and cueing for maintaining spinal precautions . Goals Bed Mobility Goal Independent Transfer Goal Independent,Cane,Front Wheeled Walker,Four Wheeled Walker Gait Goal Independent,Cane,Front Wheel Walker,Four Wheel Walker Gait Distance 50 Other Goals Pt to perform transfer independently with LRAD to show improving level of function. Pt to ambulated 50ft independently with LRAD to show improving tolerance to activity in order to ambulate household distances. Days to Meet Goals 5 Frequency of Treatment Frequency Of Treatment Twice a Day Treatment Plan Physical Therapy Treatment Plan Bed Mobility Training,Transfer Training,Gait Training, Therapeutic Exercise,Balance Retraining,Post Op Education, Discharge Planning,Hot or Cold Pack,Neuromuscular Re-ed, Coordination Retraining,Manual Therapy Precautions Lumbar Precautions Log Roll,No Twisting,Limit Bending,Lifting Restriction of 10 lbs,Gait Belt above Incisional Area Recommendations To Nursing Amount of Assist Needed 1 Person Assist Discharge Recommendations PT Discharge Recommendations Home with Assistance,SNF Rehab ,Home vs SNF Other Discharge Recommendations HHPT if discharge home. Transportation Needs at Discharge Private Vehicle,Wheelchair/ Cabulance
--- NOTE | 2023-01-10 14:29 | CM.DPC ---
DCP Plan Cont. Reviewed EMR and team rounds for status updates. [facility] has received all clinicals and submitted the aurth to [facility]. This remains pending at this time. Will plan to call [facility] in the am for status of the auth and plan for transport at d/c.
--- NOTE | 2023-01-10 14:30 | PT.IPTN ---
Current Diagnoses Spinal stenosis, lumbar region with neurogenic claudication (01/08/23) Arthrodesis status (01/08/23) Surgery Performed Operation Date: 01/08/23 07:45 Actual Procedures p L2-3 TLIF, L2-S1 PSF with instrumentation-Robot - Micah Peace MD Physical Therapy Treatment Note M2 PT-IP Current Condition Start: 01/08/23 14:54 Freq: NEEDED Status: Active Protocol: Document 01/09/23 15:31 AB (Rec: 01/09/23 16:04 AB [id number]) Physical Therapy Current Condition Current Condition Evaluation Date 01/09/23 Treatment Diagnosis s/p lumbar TLIF L2-L3 Onset Date 01/08/23 M3 PT-IP Subjective Start: 01/08/23 14:54 Freq: NEEDED Status: Active Protocol: Document 01/10/23 14:44 TS (Rec: 01/10/23 14:58 TS [id number]) Subjective Physical Therapy Visit Type Type Treatment Note Visit Start Time 14:06 Visit Stop Time 14:30 Total Visit Minutes 24 Number of AEROBICS INSTRUCTOR Visits 2 Physical Therapy Visit Comments Patient Comments Pt found resting in bed asleep , alert when awakened, reports she would like to walk some, is having some spasms in back and pain in LEs, she is agreeable to PT. Therapy Pain Assessment Pain When Pain Assessed During Mobility Pain Present Pain Present Pain Reported M4 PT-IP Mobility and Gait Start: 01/08/23 14:54 Freq: NEEDED Status: Active Protocol: Document 01/10/23 14:44 TS (Rec: 01/10/23 14:58 TS [id number]) PT-Bed Mobility Assessment Rolling Type of Rolling Log Rolling Level of Assist Standby Assistance Supine to Sit Supine to Sit Minimal Assistance Sit to Supine Sit to Supine Standby Assistance Scooting Scooting to Edge of Bed Standby Assistance PT-Transfer Assessment Sit to and From Stand Sit to and from Stand Standby Assistance,Use of Upper Extremities Equipment Transfer Assistive Device Gait Belt,Front Wheeled Walker Comments Mobility Comments BP taken in supine prior to mobility 132/39. Supine to sit Michelet for uprighting trunk with BUE support. BP in sitting 140/69, pt denied any lightheadedness or dizziness. Sit to stand with FWW SBA, pt demonstrates good carryover of sequencing. She ambulated ~ 100'SBA with slow step thru gait, had no buckling or LOB. Pt sat back EOB for rest break , some SOB, Spo2 98% on RA. Sit to supine into chair SBA, pt demonstrates good carryover of logroll sequencing. Pt requesting pain meds due to back spasms, RN notified. Gait Assessment Gait Gait Assistance Required: Standby Assistance Distance (Feet) 100 Assistive Devices Assistive Device Gait Belt,Front Wheeled Walker Gait Deviations General Gait Pattern Decreased Stride Length, Decreased Feet Clearance,Wide Based Gait Factors Limiting Gait Function Factors Limiting Gait Function Decreased Sensation,Decreased Strength,Limited Range of Motion,Pain Comments Gait Comments See mobility comments PT-Balance Assessment Sitting Balance and Reactions Static Sitting Balance Ability Normal Dynamic Sitting Balance Ability Normal Standing Balance and Reactions Static Standing Balance Ability Good Dynamic Standing Balance Ability Fair Device Used FWW M5 PT-IP Objective Assessments Start: 01/08/23 14:54 Freq: NEEDED Status: Active Protocol: Document 01/09/23 15:31 AB (Rec: 01/09/23 16:04 AB [id number]) Orientation Orientation/Cognition Level of Alertness Alert Orientation Name,Age,Birthday,Month,Date, Year,Day of Week,Place, Situation Language Function Ability No Deficits Noted Safety Awareness Understands Safety Issues Memory Description No Deficits Noted Gross Range of Motion Upper Extremity ROM Assessment Within Functional Limits Lower Extremity ROM Assessment Within Functional Limits Strength Upper Extremity Strength Assessment Within Functional Limits Lower Extremity Strength Assessment Within Functional Limits M6 PT-IP Treatment Start: 01/08/23 14:54 Freq: NEEDED Status: Active Protocol: Document 01/10/23 14:44 TS (Rec: 01/10/23 14:58 TS [id number]) Physical Therapy Treatment Education Education Provided Safety M7 PT-IP Assessment and Plan Start: 01/08/23 14:54 Freq: NEEDED Status: Active Protocol: Document 01/10/23 14:44 TS (Rec: 01/10/23 14:58 TS [id number]) PT Summary Assessment and Plan Potential Rehabilitation Potential Good Summary Impairments Pain,ROM,Strength,Balance,Bed Mobility,Transfers,Gait, Activity Tolerance Progress Towards Goals Progressing Toward Goals Assessment Summary Stefany is making progress with her mobility. She is Michelet for supine to sit for uprighting her trunk. She is SBA for sit to stand with FWW, demonstrates good standing balance. She progressed her gait to ~100' SBA with FWW, had some SOB after gait but Spo2 was unremarkable. PT continues to recommend SNF at this time due to weakness and not having assist at home. Goals Bed Mobility Goal Independent Transfer Goal Independent,Cane,Front Wheeled Walker,Four Wheeled Walker Gait Goal Independent,Cane,Front Wheel Walker,Four Wheel Walker Gait Distance 50 Other Goals Pt to perform transfer independently with LRAD to show improving level of function. Pt to ambulated 50ft independently with LRAD to show improving tolerance to activity in order to ambulate household distances. Days to Meet Goals 5 Frequency of Treatment Frequency Of Treatment Twice a Day Treatment Plan Physical Therapy Treatment Plan Bed Mobility Training,Transfer Training,Gait Training, Therapeutic Exercise,Balance Retraining,Post Op Education, Discharge Planning,Hot or Cold Pack,Neuromuscular Re-ed, Coordination Retraining,Manual Therapy Other Recommendations and Next Treatment Ambulate longer distance, use Focus 4WW as indicated Precautions Lumbar Precautions Log Roll,No Twisting,Limit Bending,Lifting Restriction of 10 lbs,Gait Belt above Incisional Area Recommendations To Nursing Amount of Assist Needed 1 Person Assist Discharge Recommendations PT Discharge Recommendations SNF Rehab,Home vs SNF Other Discharge Recommendations HHPT if discharge home. Transportation Needs at Discharge Private Vehicle,Wheelchair/ Cabulance
[2023-01-10] MEDS: AMLODIPINE 5 MG TABLET PO (17:04)
[2023-01-10] MEDS: MONTELUKAST 10 MG TABLET PO (17:04)
[2023-01-10] MEDS: PRAZOSIN 1 MG CAPSULE 2 MG PO (20:16)
[2023-01-10] MEDS: SENNOSIDES 8.6 MG TABLET 17.2 MG PO (20:17)
[2023-01-10] MEDS: INSULIN GLARGINE 100 UNIT/ML 3ML PEN 44 UNIT SUBCUT (20:20)
[2023-01-11] VITALS (13 sets, daily range): BP systolic 112–145; BP diastolic 45–64; PULSE 65–87; RESP 16–18; TEMP 35.9–36.7; O2SAT 94–96
[2023-01-11] MEDS: OXYCODONE IR 10 MG TABLET PO ×6 (00:14→21:25)
[2023-01-11] MEDS: hydrOXYzine pamoate 25 MG CAPSULE PO (00:15)
[2023-01-11] MEDS: ACETAMINOPHEN 325 MG TABLET 650 MG PO ×2 (03:03→15:37)
[2023-01-11] MEDS: TIZANIDINE 4 MG TABLET 8 MG PO ×3 (04:11→21:16)
[2023-01-11] MEDS: INSULIN LISPRO 100 UNIT/ML 3ML VIAL 12 UNIT SUBCUT ×2 (08:18→16:47)
[2023-01-11] MEDS: cloNIDine 0.1 MG TABLET 0.3 MG PO ×3 (08:21→21:11)
[2023-01-11] MEDS: carvediloL 12.5 MG TABLET 37.5 MG PO ×2 (08:25→21:11)
[2023-01-11] MEDS: calcitrioL 0.25 MCG CAPSULE PO (08:25)
[2023-01-11] MEDS: PREGABALIN 50 MG CAPSULE 100 MG PO ×3 (08:25→21:12)
[2023-01-11] MEDS: VENLAFAXINE HCL 100 MG TABLET PO ×3 (08:25→21:20)
[2023-01-11] MEDS: ZIPRASIDONE HCL 40 MG 40 EACH PO (08:26)
[2023-01-11] MEDS: DOCUSATE 100 MG CAPSULE PO ×2 (08:26→21:17)
[2023-01-11] MEDS: MULTIVITAMIN 1 TABLET 1 TAB PO (08:26)
[2023-01-11] MEDS: BUMETANIDE 1 MG TABLET 2 MG PO (08:26)
[2023-01-11] MEDS: METFORMIN HCL 500 MG TABLET PO ×2 (08:26→21:11)
[2023-01-11] MEDS: CHOLECALCIFEROL (VITAMIN D3) 5,000 UNIT TABLET 10000 UNIT PO (08:26)
[2023-01-11] MEDS: ATORVASTATIN 20 MG TABLET PO (08:27)
[2023-01-11] MEDS: HYDRALAZINE 25 MG TABLET PO ×3 (08:27→21:16)
[2023-01-11] MEDS: lamoTRIgine 100 MG TABLET 400 MG PO (08:29)
--- NOTE | 2023-01-11 09:30 | PT.IPTN ---
Current Diagnoses Spinal stenosis, lumbar region with neurogenic claudication (01/08/23) Arthrodesis status (01/08/23) Surgery Performed Operation Date: 01/08/23 07:45 Actual Procedures p L2-3 TLIF, L2-S1 PSF with instrumentation-Robot - Micah Peace MD Physical Therapy Treatment Note M2 PT-IP Current Condition Start: 01/08/23 14:54 Freq: NEEDED Status: Active Protocol: Document 01/09/23 15:31 AB (Rec: 01/09/23 16:04 AB [id number]) Physical Therapy Current Condition Current Condition Evaluation Date 01/09/23 Treatment Diagnosis s/p lumbar TLIF L2-L3 Onset Date 01/08/23 M3 PT-IP Subjective Start: 01/08/23 14:54 Freq: NEEDED Status: Active Protocol: Document 01/11/23 10:10 ZF (Rec: 01/11/23 10:24 ZF [id number]) Subjective Physical Therapy Visit Type Type Treatment Note Visit Start Time 09:30 Visit Stop Time 09:40 Total Visit Minutes 10 Number of SUPERINTENDENT CUSTODIAN JANITOR Visits 3 Physical Therapy Visit Comments Patient Comments Confirmed with nursing that pt had pain meds prior to treatment. Pt reports pain meds make her dizzy, but agreeable to therapy. M4 PT-IP Mobility and Gait Start: 01/08/23 14:54 Freq: NEEDED Status: Active Protocol: Document 01/11/23 10:10 ZF (Rec: 01/11/23 10:24 ZF [id number]) PT-Bed Mobility Assessment Sit to Supine Sit to Supine Standby Assistance Scooting Scooting to Edge of Bed Independent PT-Transfer Assessment Sit to and From Stand Sit to and from Stand Standby Assistance,Use of Upper Extremities Equipment Transfer Assistive Device Gait Belt,Front Wheeled Walker Transfers Transfer Destination Bed,Chair Transfer Technique Stand Pivot Transfer Ability Level of Assist Standby Assistance,1 Person Assistance,Use of Upper Extremities Comments Mobility Comments Pt agreeable to short therapy session. Reports mild dizziness which she contributes to pain meds. Reports that pain is controlled. STS from recliner w/2ww, SBA for safety. Pt requires axtended time to achieve standing. Pt amb ~35' in room. Dems reduced step length and step clearance, WBOS. Pt requests getting back into bed. Sitting EOB to SUP is SBA. Pt scoots to HOB ind. Pt provided w/call light, and all needs met. Gait Assessment Gait Gait Assistance Required: Standby Assistance Distance (Feet) 35 Assistive Devices Assistive Device Gait Belt,Front Wheeled Walker Gait Deviations General Gait Pattern Decreased Stride Length, Decreased Feet Clearance,Wide Based Gait Factors Limiting Gait Function Factors Limiting Gait Function Decreased Sensation,Decreased Strength,Limited Range of Motion Comments Gait Comments See mobility comments. PT-Balance Assessment Sitting Balance and Reactions Static Sitting Balance Ability Normal Dynamic Sitting Balance Ability Normal Standing Balance and Reactions Static Standing Balance Ability Good Dynamic Standing Balance Ability Fair Device Used FWW M5 PT-IP Objective Assessments Start: 01/08/23 14:54 Freq: NEEDED Status: Active Protocol: Document 01/09/23 15:31 AB (Rec: 01/09/23 16:04 AB [id number]) Orientation Orientation/Cognition Level of Alertness Alert Orientation Name,Age,Birthday,Month,Date, Year,Day of Week,Place, Situation Language Function Ability No Deficits Noted Safety Awareness Understands Safety Issues Memory Description No Deficits Noted Gross Range of Motion Upper Extremity ROM Assessment Within Functional Limits Lower Extremity ROM Assessment Within Functional Limits Strength Upper Extremity Strength Assessment Within Functional Limits Lower Extremity Strength Assessment Within Functional Limits M6 PT-IP Treatment Start: 01/08/23 14:54 Freq: NEEDED Status: Active Protocol: Document 01/11/23 10:10 NOMAN (Rec: 01/11/23 10:24 ZF [id number]) Physical Therapy Treatment Education Education Provided Safety M7 PT-IP Assessment and Plan Start: 01/08/23 14:54 Freq: NEEDED Status: Active Protocol: Document 01/11/23 10:10 NOMAN (Rec: 01/11/23 10:24 ZF [id number]) PT Summary Assessment and Plan Summary Impairments Pain,ROM,Strength,Balance,Bed Mobility,Transfers,Gait, Activity Tolerance Progress Towards Goals Progressing Toward Goals Assessment Summary Pt is SBA for gait and mobility training. Able to scoot ind in bed. Reports dizziness which limits participation in therapy. Goals Bed Mobility Goal Independent Transfer Goal Independent,Cane,Front Wheeled Walker,Four Wheeled Walker Gait Goal Independent,Cane,Front Wheel Walker,Four Wheel Walker Gait Distance 50 Other Goals Pt to perform transfer independently with LRAD to show improving level of function. Pt to ambulated 50ft independently with LRAD to show improving tolerance to activity in order to ambulate household distances. Days to Meet Goals 5 Frequency of Treatment Frequency Of Treatment Twice a Day Treatment Plan Physical Therapy Treatment Plan Bed Mobility Training,Transfer Training,Gait Training, Therapeutic Exercise,Balance Retraining,Post Op Education, Discharge Planning,Hot or Cold Pack,Neuromuscular Re-ed, Coordination Retraining,Manual Therapy Other Recommendations and Next Treatment Ambulate longer distance, use Focus 4WW as indicated Precautions Lumbar Precautions Log Roll,No Twisting,Limit Bending,Lifting Restriction of 10 lbs,Gait Belt above Incisional Area Recommendations To Nursing Amount of Assist Needed Standby Assistance Discharge Recommendations PT Discharge Recommendations SNF Rehab Transportation Needs at Discharge Private Vehicle,Wheelchair/ Cabulance
--- NOTE | 2023-01-11 14:38 | PT.IPTN ---
Current Diagnoses Spinal stenosis, lumbar region with neurogenic claudication (01/08/23) Arthrodesis status (01/08/23) Surgery Performed Operation Date: 01/08/23 07:45 Actual Procedures p L2-3 TLIF, L2-S1 PSF with instrumentation-Robot - Micah Peace MD Physical Therapy Treatment Note M2 PT-IP Current Condition Start: 01/08/23 14:54 Freq: NEEDED Status: Active Protocol: Document 01/09/23 15:31 AB (Rec: 01/09/23 16:04 AB [id number]) Physical Therapy Current Condition Current Condition Evaluation Date 01/09/23 Treatment Diagnosis s/p lumbar TLIF L2-L3 Onset Date 01/08/23 M3 PT-IP Subjective Start: 01/08/23 14:54 Freq: NEEDED Status: Active Protocol: Document 01/11/23 15:04 ZF (Rec: 01/11/23 15:20 ZF [id number]) Subjective Physical Therapy Visit Type Type Treatment Note Visit Start Time 14:38 Visit Stop Time 15:00 Total Visit Minutes 22 Number of SEED CUTTER Visits 4 Physical Therapy Visit Comments Patient Comments Pt resting in supine when approached for therapy, agreeable to participate. Reports reduced dizziness this PM. Therapy Pain Assessment Pain When Pain Assessed During Mobility Pain Present Pain Present Pain Reported Location Back Intensity 6 M4 PT-IP Mobility and Gait Start: 01/08/23 14:54 Freq: NEEDED Status: Active Protocol: Document 01/11/23 15:04 ZF (Rec: 01/11/23 15:20 ZF [id number]) PT-Bed Mobility Assessment Rolling Type of Rolling Log Rolling Level of Assist Standby Assistance Supine to Sit Supine to Sit Standby Assistance Sit to Supine Sit to Supine Standby Assistance Scooting Scooting to Edge of Bed Independent PT-Transfer Assessment Sit to and From Stand Sit to and from Stand Standby Assistance,Use of Upper Extremities Equipment Transfer Assistive Device Gait Belt,Front Wheeled Walker Transfers Transfer Destination Bed,Chair,Toilet Transfer Technique Stand Step Pivot Transfer Ability Level of Assist Standby Assistance,Use of Upper Extremities Comments Mobility Comments Bed Mobility: Supine<>Sitting EOB, pt is SBA w/Log Roll. Pt recalls 2/3 spinal precautions verbally. STS from EOB, recliner, toilet w/2ww, SBA. Pt requires MaxA for pericare and to cherie/doff brief to maintain spinal precautions. Pt amb room distances and ~110 ' in hallway w/2ww, SBA. Pt reports that her L LE feels shaky requests returning to room. Pt requires lengthy seated RB due to fatigue. Standing LE AROM to improve standing tolerance to include shallow mini squats, marching using 2ww, SBA. Pt requests getting back into bed after treatment. Call light provided and all needs met. Gait Assessment Gait Gait Assistance Required: Standby Assistance Distance (Feet) 110 Assistive Devices Assistive Device Gait Belt,Front Wheeled Walker Gait Deviations General Gait Pattern Decreased Stride Length, Decreased Feet Clearance,Wide Based Gait Factors Limiting Gait Function Factors Limiting Gait Function Decreased Activity Tolerance, Decreased Sensation,Decreased Strength,Limited Range of Motion Comments Gait Comments See mobility comments. PT-Balance Assessment Sitting Balance and Reactions Static Sitting Balance Ability Normal Dynamic Sitting Balance Ability Normal Standing Balance and Reactions Static Standing Balance Ability Good Dynamic Standing Balance Ability Fair Device Used FWW M5 PT-IP Objective Assessments Start: 01/08/23 14:54 Freq: NEEDED Status: Active Protocol: Document 01/09/23 15:31 AB (Rec: 01/09/23 16:04 AB [id number]) Orientation Orientation/Cognition Level of Alertness Alert Orientation Name,Age,Birthday,Month,Date, Year,Day of Week,Place, Situation Language Function Ability No Deficits Noted Safety Awareness Understands Safety Issues Memory Description No Deficits Noted Gross Range of Motion Upper Extremity ROM Assessment Within Functional Limits Lower Extremity ROM Assessment Within Functional Limits Strength Upper Extremity Strength Assessment Within Functional Limits Lower Extremity Strength Assessment Within Functional Limits M6 PT-IP Treatment Start: 01/08/23 14:54 Freq: NEEDED Status: Active Protocol: Document 01/11/23 15:04 (Rec: 01/11/23 15:20 [id number]) Physical Therapy Treatment Education Education Provided Precautions,Safety M7 PT-IP Assessment and Plan Start: 01/08/23 14:54 Freq: NEEDED Status: Active Protocol: Document 01/11/23 15:04 ZF (Rec: 01/11/23 15:20 ZF [id number]) PT Summary Assessment and Plan Potential Rehabilitation Potential Good Summary Impairments Pain,ROM,Strength,Balance,Bed Mobility,Transfers,Gait, Activity Tolerance Progress Towards Goals Progressing Toward Goals Assessment Summary Pt reports reduced dizziness this PM. Performs logroll w/o assist. Requires SBA for all functional mobility and maxA for pericare and brief management to maintain spinal precautions. Goals Bed Mobility Goal Independent Transfer Goal Independent,Cane,Front Wheeled Walker,Four Wheeled Walker Gait Goal Independent,Cane,Front Wheel Walker,Four Wheel Walker Gait Distance 50 Other Goals Pt to perform transfer independently with LRAD to show improving level of function. Pt to ambulated 50ft independently with LRAD to show improving tolerance to activity in order to ambulate household distances. Days to Meet Goals 5 Frequency of Treatment Frequency Of Treatment Twice a Day Treatment Plan Physical Therapy Treatment Plan Bed Mobility Training,Transfer Training,Gait Training, Therapeutic Exercise,Balance Retraining,Post Op Education, Discharge Planning,Hot or Cold Pack,Neuromuscular Re-ed, Coordination Retraining,Manual Therapy Other Recommendations and Next Treatment Ambulate longer distance, use Focus 4WW as indicated Precautions Lumbar Precautions Log Roll,No Twisting,Limit Bending,Lifting Restriction of 10 lbs,Gait Belt above Incisional Area Recommendations To Nursing Amount of Assist Needed Standby Assistance Discharge Recommendations PT Discharge Recommendations SNF Rehab Transportation Needs at Discharge Wheelchair/Cabulance
--- NOTE | 2023-01-11 14:39 | CM.DPC ---
Addendum entered and electronically signed by SIMEON Olvera 01/11/23 14:52: Update: Per [employer], no auth available, se the [employer] Auth ID: [id number]. Call Shawna at [facility] in am to confirm authorization for payment for [employer] or [employer] in the am. MATTHEW AUTH ID# [id number] Original Note: DCP Cont. Reviewed EMR and team rounds for status updates. Pt has been accepted at [facility] [place], the [employer] auth continues to remain pending, despite several phone calls from the facility in checking on updates, as well as this [employer] P[employer] MECHANIC HELPER. PASSAR completed except for d/c date. Cont. to follow closely.
--- NOTE | 2023-01-11 16:37 | OT.IP.TRT ---
Current Diagnoses Spinal stenosis, lumbar region with neurogenic claudication (01/08/23) Arthrodesis status (01/08/23) Surgery Performed Operation Date: 01/08/23 07:45 Actual Procedures p L2-3 TLIF, L2-S1 PSF with instrumentation-Robot - Micah Peace MD Occupational Therapy Treatment Note M2 OT-IP Current Condition Start: 01/10/23 08:59 Freq: Status: Active Protocol: Document 01/10/23 08:37 [facility] (Rec: 01/10/23 09:16 [facility] [id number]) Occupational Therapy Current Condition Current Condition Evaluation Date 01/10/23 Treatment Diagnosis S/P L2-3 TLIF, L2-S1 PSF Diagnosis Onset Date 01/08/23 Post Operative Precautions Lumbar Precautions Log Roll,No Twisting,Limit Bending,Lifting Restriction of 10 lbs,Gait Belt above Incisional Area M3 OT- IP Subjective and Pain Start: 01/10/23 08:59 Freq: Status: Active Protocol: Document 01/11/23 16:37 [facility] (Rec: 01/11/23 17:08 [facility] [id number]) OT- Subjective Occupational Therapy Visit Type Type Treatment Note Visit Start Time 15:34 Visit Stop Time 16:37 Total Visit Minutes 63 Occupational Therapy Visit Comments Patient Comments Pt agreed to take a shower. Pt requesting pain med as pt at 7/10 afterwards and able to notify nursing. Patient/Caregiver Goals To get better. OT Pain Assessment Pain When Pain Assessed During Mobility Pain Present Pain Present Pain Reported Location Back Intensity 7 Scale Used Numeric (0 - 10) M4 OT- IP ADL's Start: 01/10/23 08:59 Freq: Status: Active Protocol: Document 01/11/23 16:37 [facility] (Rec: 01/11/23 17:08 [facility] [id number]) OT ADL-Dressing General Eval Lower Body Dressing Ability Maximum Assistance Comments OT Dressing Comments Pt tired from showering and needing MAXA for brief management needs and socks. Pt able to doff the socks with latex spooler. OT ADL-Bathing Bathing Type Bathing Type Shower General Evaluation Bathing Ability Maximal Assistance Areas Needing Assistance Retrieving/Setting Up Items, Wash/Dry Back,Wash/Dry Perineal Area,Wash/Dry Lower Extremities Comments OT Bathing Comments Pt having difficulty to reach pericare needs. Noted redness under her apron and nursing called to look and states to use cornstarch as pt does so at home. Pt will greatly benefit from her caregiver at home to assist her with showering needs, in addition to look into getting a toilet paper aid. M6 OT- IP Functional Cognition Start: 01/10/23 08:59 Freq: Status: Active Protocol: Document 01/11/23 16:37 [facility] (Rec: 01/11/23 17:08 [facility] [id number]) Cognitive Factors Limiting Selfcare Function Cognitive Ability Level of Alertness Alert Patient Orientation Name,Age,Birthday,Month,Date, Year,Day of Week,Place, Situation Attention Span Ability Capable of Focused Attention, Capable of Sustained Attention Ability to Follow Commands Able to Follow Multi-Step Commands Cognitive Comments Cognitive Assessment Comments Pt doing much better today and much more alert and able to follow her back precautions during ADL and mobility needs. M7 OT- IP Mobility and Balance Start: 01/10/23 08:59 Freq: Status: Active Protocol: Document 01/11/23 16:37 [facility] (Rec: 01/11/23 17:08 [facility] [id number]) OT- Bed Mobility Assessment Supine to Sit Supine to Sit Assist Contact Guard Assistance, Bedrails Sit to Supine Sit to Supine Assist Contact Guard Assistance, Bedrails OT-Transfer Assessment Sit to and From Stand Sit to and from Stand Minimal Assistance Transfers Transfer Ability Contact Guard Assistance Technique Transfer Destination Bed,Shower Stall,Toilet Transfer Technique Stand Step Pivot Devices Transfer Assistive Devices Bed Rail,Front Wheeled Walker Comments Mobility Comments Pt doing better with log rolling and getting up today but still needing CGA assist to get up from side lying and to get her feet back into the bed. CGA to help step over the lip of the shower. OT- Balance Assessment Sitting Balance and Reactions Static Sitting Balance Ability Normal Dynamic Sitting Balance Ability Good Standing Balance and Reactions Static Standing Balance Ability Good Dynamic Standing Balance Ability Fair M8 OT- IP Objective Assessments Start: 01/10/23 08:59 Freq: Status: Active Protocol: Document 01/10/23 08:37 [facility] (Rec: 01/10/23 09:16 [facility] [id number]) OT Gross Range of Motion Upper Extremity Range of Motion Assessment Within Functional Limits M9 OT- IP Assessment and Plan Start: 01/10/23 08:59 Freq: Status: Active Protocol: Document 01/11/23 16:37 [facility] (Rec: 01/11/23 17:08 [facility] [id number]) OT Summary Assessment and Plan Potential Rehabilitation Potential Good Analytic Complexity at Evaluation Low Summary OT Impairments Pain,Balance,Functional Mobility,Grooming,Dressing, Toileting,Bathing,Toilet Transfers,Shower Transfers Progress Towards Goals Progressing Toward Goals,Slow Progress due to Pain Assessment Summary Pt doing much better today and able to tolerate a shower. Pt will continue to benefit from practicing LB dressing needs, bathing, and pericare needs. Pt hopes to buy a toilet paper aid to assist with her needs. Goals Grooming Goal Independent Dressing Goal Independent,Long Handled Shoe Horn,Resident Medical Officer,Sock Aid Toileting Goal Independent Bathing Goal Minimal Assistance Toilet Transfer Goal Independent Shower Transfer Goal Contact Guard Assistance Days to Meet Goals 7 Frequency of Treatment Frequency Of Treatment Once a Day Treatment Plan OT Treatment Plan ADL Training,Functional Mobility,Patient/Family Education,Discharge Planning Discharge Recommendations OT Discharge Recommendations SNF Rehab Home Equipment Needs toilet paper aid Transportation Needs at Discharge Wheelchair/Cabulance
[2023-01-11] MEDS: MONTELUKAST 10 MG TABLET PO (16:47)
[2023-01-11] MEDS: AMLODIPINE 5 MG TABLET PO (16:47)
--- NOTE | 2023-01-11 18:37 | PM.PNPO.1 ---
Subjective Subjective Date Patient Seen: 01/11/23 Time Patient Seen: 08:00 Interval history: Pt seen this morning sitting up and eating. Pain is controlled with oral meds. Has a tingling sensation down to left thigh. Able to void and ambulate with walker. Exam Vital Signs (past 8 hours): - 01/11/23 15:38 01/11/23 15:38 01/11/23 15:42 Temperature 97.4 F L Pulse Rate 74 77 76 Respiratory Rate 16 Blood Pressure 130/64 130/64 130/64 Pulse Oximetry 95 Oxygen Flow Rate 0 01/11/23 16:46 Temperature Pulse Rate 65 Respiratory Rate Blood Pressure Pulse Oximetry Oxygen Flow Rate Fraction of Inspired Oxygen 21 SaO2/FiO2 Ratio 442 Oxygen Delivery Method Room Air Oxygen Flow Rate 0 Narrative Exam Narrative: Able to dorsiflex and plantarflex at the ankle against resistance. Sensation is grossly intact. Dressing is clean and dry. Resp Effort & Inspection: normal respiratory effort and able to speak in complete sentences Objective Labs 01/09/23 05:25 [facility] Medical History Uses self-applied continuous glucose monitoring device Peptic ulcer Pneumonia Seasonal allergies Sleep apnea PCOS (polycystic ovarian syndrome) IBS (irritable bowel syndrome) Hyperkalemia Diverticulosis Convulsions (12/20/17) Chronic renal insufficiency, stage II (mild) Chronic pain disorder Asthma Anemia Allergic rhinitis ADHD Respiratory failure with hypoxia (05/05/20) HLD (hyperlipidemia) Peripheral neuropathy Diabetes Morbid obesity with body mass index (BMI) of 40.0 to 49.9 (Unknown) History of iron deficiency anemia Chronic post-traumatic stress disorder (PTSD) Nocturnal hypoxemia Obstructive sleep apnea of adult Primary insomnia Restless legs syndrome Bipolar II disorder Spinal stenosis, lumbar Chronic pain Anxiety Binge eating Hypersomnia Insomnia Depression Surgical History History of surgery Hx of fusion of cervical spine (08/2017) History of surgery (02/2019) History of esophagogastroduodenoscopy (EGD) Hx of discectomy (2007) Hx of discectomy (2005) History of lumbar fusion (2014) Hx of knee surgery (05/2008) Hx of knee surgery (07/1990) History of incisional hernia repair (1993) Hx of eye surgery (2016) Hx of colonoscopy Hx of cholecystectomy Hx of appendectomy (1997) History of tonsillectomy and adenoidectomy Hx of Achilles tendon repair (2012) History of gastric bypass (2007) Social History marital status: unmarried,single details: lives alone number of children: 0 household members: none lives independently: Yes caregiver/support person: Yes (16 hours weekly) housing: apartment pets and animals: Yes (has a little dog) Smoking Status: Never smoker alcohol intake: former substance use type: does not use during the past year weight has: increased > 10 lbs caffeine: No Assessment & Plan Post-op Postoperative Procedures: Procedures Operation Date: 01/08/23 07:45 Actual Procedure Side Surgeon p L2-3 TLIF, L2-S1 PSF with instrumentation-Robot Micah Peace MD Postoperative day: 3 Postoperative status: doing well Postoperative plan: routine post-op care Postoperative plan narrative: Plan is to discharge to SNF today. Continue with multimodal pain control and PT Time Spent With Patient Time with patient: less than 15 minutes Quality VTE Deep Vein Thrombosis/Pulmonary Embolism Present on Admission: No
[2023-01-11] MEDS: INSULIN GLARGINE 100 UNIT/ML 3ML PEN 44 UNIT SUBCUT (21:10)
[2023-01-11] MEDS: PRAZOSIN 1 MG CAPSULE 2 MG PO (21:12)
[2023-01-11] MEDS: SENNOSIDES 8.6 MG TABLET 17.2 MG PO (21:20)
[2023-01-12] MEDS: OXYCODONE IR 10 MG TABLET PO (02:19)
[2023-01-12] MEDS: TIZANIDINE 4 MG TABLET 8 MG PO (04:16)
--- NOTE | 2023-01-12 06:51 | PM.PNPO.1 ---
Subjective Subjective Date Patient Seen: 01/12/23 Time Patient Seen: 06:51 Interval history: Pt sitting up in bed, comfortable. Discharge has been pending SNF acceptance/insurance issues. Per CM note, hope to d/c to [facility] in [place] later today. Exam Vital Signs (past 8 hours): Fraction of Inspired Oxygen 21 SaO2/FiO2 Ratio 442 Oxygen Delivery Method Room Air Oxygen Flow Rate 0 Narrative Exam Narrative: 5/5 strength in hip flexors, quadriceps, hamstrings, DF, PF, EHL bilaterally. Sensation to light touch intact throughout BLE. Calves soft, compressible, nontender. Dressing placed intraoperatively is CDI. Objective Labs 01/09/23 05:25 [facility] Medical History Uses self-applied continuous glucose monitoring device Peptic ulcer Pneumonia Seasonal allergies Sleep apnea PCOS (polycystic ovarian syndrome) IBS (irritable bowel syndrome) Hyperkalemia Diverticulosis Convulsions (12/20/17) Chronic renal insufficiency, stage II (mild) Chronic pain disorder Asthma Anemia Allergic rhinitis ADHD Respiratory failure with hypoxia (05/05/20) HLD (hyperlipidemia) Peripheral neuropathy Diabetes Morbid obesity with body mass index (BMI) of 40.0 to 49.9 (Unknown) History of iron deficiency anemia Chronic post-traumatic stress disorder (PTSD) Nocturnal hypoxemia Obstructive sleep apnea of adult Primary insomnia Restless legs syndrome Bipolar II disorder Spinal stenosis, lumbar Chronic pain Anxiety Binge eating Hypersomnia Insomnia Depression Surgical History History of surgery Hx of fusion of cervical spine (08/2017) History of surgery (02/2019) History of esophagogastroduodenoscopy (EGD) Hx of discectomy (2007) Hx of discectomy (2005) History of lumbar fusion (2014) Hx of knee surgery (05/2008) Hx of knee surgery (07/1990) History of incisional hernia repair (1993) Hx of eye surgery (2016) Hx of colonoscopy Hx of cholecystectomy Hx of appendectomy (1997) History of tonsillectomy and adenoidectomy Hx of Achilles tendon repair (2012) History of gastric bypass (2007) Social History marital status: unmarried,single details: lives alone number of children: 0 household members: none lives independently: Yes caregiver/support person: Yes (16 hours weekly) housing: apartment pets and animals: Yes (has a little dog) Smoking Status: Never smoker alcohol intake: former substance use type: does not use during the past year weight has: increased > 10 lbs caffeine: No Assessment & Plan Post-op Assessment and plan (1) S/P lumbar fusion: Assessment and Plan narrative: Hopeful discharge to SNF today. Paperwork is done and in pts chart. F/u in office as scheduled. (2) Morbid obesity with body mass index (BMI) of 40.0 to 49.9: (3) Acute on chronic blood loss anemia: Postoperative Procedures: Procedures Operation Date: 01/08/23 07:45 Actual Procedure Side Surgeon p L2-3 TLIF, L2-S1 PSF with instrumentation-Robot Micah Peace MD Postoperative day: 4 Quality VTE Deep Vein Thrombosis/Pulmonary Embolism Present on Admission: No
[2023-01-12 07:55] VITALS: BP 131/50; PULSE 74; RESP 19; TEMP 37.1; O2SAT 94
[2023-01-12 08:05] VITALS: PULSE 76; RESP 18; O2SAT 95
[2023-01-12 09:04] VITALS: BP 131/50; PULSE 74
[2023-01-12] MEDS: carvediloL 12.5 MG TABLET 37.5 MG PO (09:04)
[2023-01-12 09:05] VITALS: BP 131/50; PULSE 74
[2023-01-12] MEDS: MULTIVITAMIN 1 TABLET 1 TAB PO (09:05)
[2023-01-12] MEDS: VENLAFAXINE HCL 100 MG TABLET PO (09:05)
[2023-01-12] MEDS: cloNIDine 0.1 MG TABLET 0.3 MG PO (09:05)
[2023-01-12] MEDS: HYDRALAZINE 25 MG TABLET PO (09:05)
[2023-01-12] MEDS: METFORMIN HCL 500 MG TABLET PO (09:05)
[2023-01-12] MEDS: BUMETANIDE 1 MG TABLET 2 MG PO (09:06)
[2023-01-12] MEDS: DOCUSATE 100 MG CAPSULE PO (09:06)
[2023-01-12] MEDS: CHOLECALCIFEROL (VITAMIN D3) 5,000 UNIT TABLET 10000 UNIT PO (09:06)
[2023-01-12] MEDS: PREGABALIN 50 MG CAPSULE 100 MG PO (09:07)
[2023-01-12] MEDS: calcitrioL 0.25 MCG CAPSULE PO (09:07)
[2023-01-12] MEDS: ATORVASTATIN 20 MG TABLET PO (09:07)
[2023-01-12] MEDS: ZIPRASIDONE HCL 40 MG 40 EACH PO (09:07)
[2023-01-12] MEDS: lamoTRIgine 100 MG TABLET 400 MG PO (09:07)
[2023-01-12] MEDS: INSULIN LISPRO 100 UNIT/ML 3ML VIAL 12 UNIT SUBCUT (09:08)
--- NOTE | 2023-01-12 10:39 | CM.DPC ---
Addendum entered by SIMEON Dong 01/12/23 14:07: Shawna called again. Dentures were found with patient's possessions. SL Addendum entered by SIMEON Dong 01/12/23 13:38: Shawna called to report patient believes she left her dentures at the hospital. LATHE PULLER spoke with RN no dentures found. RN checked with staff registered nurse that was in the room cleaning. No dentures were found. LATHE PULLER reported findings to Shawna. MATTHEW. Addendum entered by SIMEON Dong 01/12/23 11:42: Shawna from [facility] called to indicate patient would need a level two PASRR. LATHE PULLER spoke with Tori Naranjo, PASSR coordinator for OR area (ph [phone]). Asked to send level 1 PASRR and H&P. LATHE PULLER faxed H&P and PASRR to Tori's line, . Original Note: DCP continued LATHE PULLER reviewed EMR. Per chart, patient cleared to d/c today, order in. LATHE PULLER spoke with Shawna at [facility]. Able to accept at any time today, unable to provide transport. [facility]- spoke with dispatch, no transport available. [employer]- spoke with dispatch. no transport available today. Per PT, likely able to tolerate private vehicle to OR. LATHE PULLER spoke with patient. Patient reports having no one to transport her. Patient reports likely able to do taxi if someone can help her in the car and out of the car. LATHE PULLER spoke with [facility]. Only able to transport at 1100 today. Gave them number to call Shawna for payment. LATHE PULLER updated EXIT BOOTH AGENT/RN/patient. All agreeable to plan. LATHE PULLER completed PASSR. CHARLEY Carvalho kindly agreed to assist in sending final clinicals, PASSR, and signed med list to [facility]. LATHE PULLER updated Shawna at [facility]. Agrees to pay for taxi and agreed someone could help her out of the vehicle upon arrival. LATHE PULLER updated DANGELO Hull. Plan: patient to d/c to [facility] SNF today at 1100 via [facility]. CM team will continue to follow closely. SIMEON Dong
== END 2023-01-12 11:00 | DRG 454 ==
PROVIDERS: Admitting Provider Orthopaedic Surgery Orthopaedic Surgery of the Spine; Family Provider Nurse Practitioner; PCP Family Medicine; Referring Provider Orthopaedic Surgery Orthopaedic Surgery of the Spine; Visit Provider Orthopaedic Surgery Orthopaedic Surgery of the Spine
PROC: 0SG00AJ Fusion of Lumbar Vertebral Joint with Interbody Fusion Device, Posterior Approach, Anterior Column, Open Approach (ICD-10-PCS; principal; 2023-01-08 07:45)
DX: M48.062 Spinal stenosis, lumbar region with neurogenic claudication (principal); M96.0 Pseudarthrosis after fusion or arthrodesis; T84.216A Breakdown (mechanical) of internal fixation device of vertebrae, initial encounter; Z68.42 Body mass index [BMI] 45.0-49.9, adult; E66.01 Morbid (severe) obesity due to excess calories; M51.16 Intervertebral disc disorders with radiculopathy, lumbar region; E11.9 Type 2 diabetes mellitus without complications; J45.909 Unspecified asthma, uncomplicated; I10 Essential (primary) hypertension; E78.5 Hyperlipidemia, unspecified; F32.A Depression, unspecified; F41.9 Anxiety disorder, unspecified; G47.33 Obstructive sleep apnea (adult) (pediatric); Z79.4 Long term (current) use of insulin; Z79.84 Long term (current) use of oral hypoglycemic drugs; Z79.85 Long-term (current) use of injectable non-insulin antidiabetic drugs; Z98.1 Arthrodesis status
CPT/HCPCS: 36415; 72100; 76000; 82962; 85014; 85018; 94640; 97116; 97161; 97165; 97530; 97535; C1776; A9270; C9290; J0171; J0690; J1100; J1170; J1815; J2250; J2405; J2704; J3010; J7613

== ENCOUNTER → 2023-04-10 11:10 | Outpatient (CLI) | payer OTHER, MEDICAID, SELFPAY ==
[2023-01-08 06:19] VITALS: BMI 48.2
[2023-04-10 12:14] LABS: Add Manual Diff / Slide Review NO; Basophils Absolute Auto 100 /uL (0-100); Basophils Percent Auto 0.6 % (0-2); Eosinophils Absolute Auto 700 /uL (0-450); Eosinophils Percent Auto 5.1 % (2-4); Hematocrit 35.4 % (36-46); Hemoglobin 11.4 g/dL (12.0-16.0); Lymphocytes Absolute Auto 1800 /uL (1100-4500); Lymphocytes Percent Auto 12.6 % (25-40); Mean Corpuscular HGB Conc 32.1 % (30-36); Mean Corpuscular Hemoglobin 28.3 PG (26-34); Monocytes Absolute Auto 900 /uL (0-900); Monocytes Percent Auto 6.1 % (3-14); Neutrophils Absolute Auto 10600 /uL (1500-7000); Neutrophils Percent Auto 75.6 % (50-75); Platelet Count 333 X10^3/uL (150-400); Red Blood Cell Count 4.02 X10^6/uL (4.0-5.2); Red Cell Distribution Width 16.8 % (11.6-14.8)
[2023-04-10 12:57] LABS: Alanine Aminotransferase 33 IU/L (<35); Albumin 3.9 g/dL (3.5-5.0); Albumin Globulin Ratio 1.4 (1.0-2.8); Alkaline Phosphatase 111 U/L (38-126); Aspartate Aminotransferase 43 IU/L (14-36); BUN Creatinine Ratio 7.8 (6-22); Bilirubin Total 0.4 mg/dL (0.2-1.3); Blood Urea Nitrogen 13 mg/dL (7-17); Calcium 9.2 mg/dL (8.4-10.2); Carbon Dioxide 23 mmol/L (22-32); Chloride 104 mmol/L (98-107); Estimated Glomerular Filt Rate 38 mL/min (>60); Globulin 2.7 g/dL (1.7-4.1); Glucose 51 mg/dL (70-100); HEMOLYSIS < 15 (0-50); Potassium 3.7 mmol/L (3.4-5.1); Sodium 138 mmol/L (137-145); Total Protein 6.6 g/dL (6.3-8.2)
[2023-04-10 13:11] LABS: Free T4, Direct Thyroxine 1.11 ng/dL (0.78-2.19)
[2023-04-10 13:25] LABS: Thyroid Stimulating Hormone 2.36 uIU/mL (0.47-4.68)
== END ==
PROVIDERS: Family Provider Nurse Practitioner; PCP Family Medicine; Referring Provider Psychiatry & Neurology Psychiatry; Visit Provider Psychiatry & Neurology Psychiatry
DX: Z79.899 Other long term (current) drug therapy (principal)
CPT/HCPCS: 36415; 80053; 84439; 84443; 85025